=== PATIENT | male | born 1935 | race Caucasian/White ===

== ENCOUNTER → 2016-04-01 | Outpatient (CLI) | payer OTHER, BC ==
[2016-04-01 13:01] LABS: ESTIMATED AVERAGE GLUCOSE 137 mg/dl; HA1C FLAG Normal (Normal)
[2016-04-01 13:22] LABS: ALT/SGPT 16 U/L (12-78); BLOOD UREA NITROGEN 16 mg/dl (7-18); BUN/CREATININE RATIO 16.6 (10-20); CARBON DIOXIDE 29 mmol/L (21-32); CHLORIDE 105 mmol/L (98-107); CHOLESTEROL 129 mg/dl (0-200); CREATININE 0.97 mg/dl (0.60-1.40); GLUCOSE 139 mg/dl (70-99); POTASSIUM 4.2 mmol/L (3.5-5.1); SODIUM 140 mmol/L (136-145)
[2016-04-01 13:26] LABS: AST/SGOT 14 U/L (15-37); CHOLESTEROL/HDL RATIO 2.3; HDL CHOLESTEROL 56 mg/dl; LDL CHOLESTEROL CALCULATED 48 mg/dl; TRIGLYCERIDES 127 mg/dl (0-150); VERY LOW DENSITY LIPOPROT CALC 25 mg/dl
== END | disposition home or self-care (01) ==
LOC: C.LABMFLN 10:23
PROVIDERS: ATTEND Family Medicine
DX: I10 Essential (primary) hypertension (principal); E78.00 Pure hypercholesterolemia, unspecified; E11.9 Type 2 diabetes mellitus without complications

== ENCOUNTER → 2016-07-28 | Outpatient (CLI) | payer OTHER, BC ==
[2016-07-28 19:17] LABS: ALT/SGPT 20 U/L (12-78); AST/SGOT 17 U/L (15-37); BLOOD UREA NITROGEN 19 mg/dl (7-18); BUN/CREATININE RATIO 18.5 (10-20); CARBON DIOXIDE 28 mmol/L (21-32); CHLORIDE 104 mmol/L (98-107); CHOLESTEROL 123 mg/dl (0-200); GLUCOSE 106 mg/dl (70-99); POTASSIUM 3.9 mmol/L (3.5-5.1); SODIUM 140 mmol/L (136-145)
[2016-07-28 19:20] LABS: ALB/GLOB RATIO 1.2 (0.9-2); ALKALINE PHOSPHATASE 75 U/L (45-117); HDL CHOLESTEROL 63 mg/dl; LDL CHOLESTEROL CALCULATED 44 mg/dl; TRIGLYCERIDES 81 mg/dl (0-150); VERY LOW DENSITY LIPOPROT CALC 16 mg/dl
[2016-07-29 06:38] LABS: ESTIMATED AVERAGE GLUCOSE 137 mg/dl; HA1C FLAG Normal (Normal)
== END | disposition home or self-care (01) ==
LOC: C.LABMFLN 15:18
PROVIDERS: ATTEND Family Medicine
DX: I10 Essential (primary) hypertension (principal); E78.00 Pure hypercholesterolemia, unspecified; E11.9 Type 2 diabetes mellitus without complications

== ENCOUNTER → 2016-07-28 | Outpatient (CLI) | payer OTHER, BC | END | disposition home or self-care (01) | LOC: C.PATHSPEC 09:37 | PROVIDERS: ATTEND Family Medicine | DX: L98.9 Disorder of the skin and subcutaneous tissue, unspecified (principal) ==

== ENCOUNTER → 2016-12-02 | Outpatient (CLI) | payer OTHER, BC ==
[2016-12-02 13:54] LABS: CREATININE RANDOM URINE 59.6 mg/dl
[2016-12-02 13:58] LABS: URINE APPEARANCE CLEAR (CLEAR); URINE BILIRUBIN NEG (NEG); URINE COLOR YELLOW; URINE NITRITE NEG (NEG); UROBILINOGEN NEG (NEG)
[2016-12-02 14:00] LABS: MANUAL MICROSCOPIC REQUIRED? NO; REVIEW REQ? NO
[2016-12-02 14:03] LABS: ESTIMATED AVERAGE GLUCOSE 131 mg/dl; HA1C FLAG Normal (Normal)
[2016-12-02 14:05] LABS: RATIO 11.4 mcg/mg (0-30.0)
[2016-12-02 14:14] LABS: ALT/SGPT 16 U/L (12-78); BLOOD UREA NITROGEN 15 mg/dl (7-18); BUN/CREATININE RATIO 16.4 (10-20); CALCIUM 9.3 mg/dl (8.5-10.1); CARBON DIOXIDE 28 mmol/L (21-32); CHLORIDE 104 mmol/L (98-107); CHOLESTEROL 123 mg/dl (0-200); CREATININE 0.91 mg/dl (0.60-1.40); GLUCOSE 134 mg/dl (70-99); POTASSIUM 4.1 mmol/L (3.5-5.1); SODIUM 138 mmol/L (136-145)
[2016-12-02 14:17] LABS: ALB/GLOB RATIO 1.3 (0.9-2); ALKALINE PHOSPHATASE 77 U/L (45-117); AST/SGOT 19 U/L (15-37); HDL CHOLESTEROL 62 mg/dl; LDL CHOLESTEROL CALCULATED 41 mg/dl; TRIGLYCERIDES 99 mg/dl (0-150); VERY LOW DENSITY LIPOPROT CALC 20 mg/dl
== END | disposition home or self-care (01) ==
LOC: C.LABMFLN 07:32
PROVIDERS: ATTEND Family Medicine
DX: R35.0 Frequency of micturition (principal); R39.15 Urgency of urination; I10 Essential (primary) hypertension; E78.00 Pure hypercholesterolemia, unspecified; E11.40 Type 2 diabetes mellitus with diabetic neuropathy, unspecified

== ENCOUNTER → 2017-04-04 | Outpatient (CLI) | payer OTHER, BC ==
[2017-04-04 13:09] LABS: ALBUMIN 3.8 gm/dl (3.4-5.0); ALT/SGPT 15 U/L (12-78); BLOOD UREA NITROGEN 16 mg/dl (7-18); CALCIUM 9.5 mg/dl (8.5-10.1); CARBON DIOXIDE 28 mmol/L (21-32); CHOLESTEROL 120 mg/dl (0-200); CREATININE 0.96 mg/dl (0.60-1.40); GLUCOSE 134 mg/dl (70-99); POTASSIUM 3.8 mmol/L (3.5-5.1); SODIUM 137 mmol/L (136-145)
[2017-04-04 13:10] LABS: HEMOGLOBIN A1C 6.5 % (4.5-5.6)
[2017-04-04 13:12] LABS: ALKALINE PHOSPHATASE 73 U/L (45-117); AST/SGOT 15 U/L (15-37); LDL CHOLESTEROL CALCULATED 39 mg/dl; TOTAL PROTEIN 7.1 gm/dl (6.4-8.2)
== END | disposition home or self-care (01) ==
LOC: C.LABMFLN 08:33
PROVIDERS: ATTEND Family Medicine
DX: I10 Essential (primary) hypertension (principal); E78.00 Pure hypercholesterolemia, unspecified; E11.9 Type 2 diabetes mellitus without complications

== ENCOUNTER → 2017-09-28 | Outpatient (CLI) | payer OTHER, BC ==
[2017-09-28 18:04] LABS: ALBUMIN 3.8 gm/dl (3.4-5.0); ALKALINE PHOSPHATASE 78 U/L (45-117); ALT/SGPT 20 U/L (12-78); AST/SGOT 17 U/L (15-37); BLOOD UREA NITROGEN 9 mg/dl (7-18); CALCIUM 8.9 mg/dl (8.5-10.1); CARBON DIOXIDE 31 mmol/L (21-32); CHOLESTEROL 112 mg/dl (0-200); GLUCOSE 109 mg/dl (70-99); LDL CHOLESTEROL CALCULATED 40 mg/dl; POTASSIUM 3.9 mmol/L (3.5-5.1); SODIUM 140 mmol/L (136-145); TOTAL PROTEIN 7.1 gm/dl (6.4-8.2)
[2017-09-29 06:09] LABS: HEMOGLOBIN A1C 6.4 % (4.5-5.6)
== END | disposition home or self-care (01) ==
LOC: C.LABMFLN 14:45
PROVIDERS: ATTEND Family Medicine
DX: E78.00 Pure hypercholesterolemia, unspecified (principal); E11.9 Type 2 diabetes mellitus without complications; G25.0 Essential tremor

== ENCOUNTER 2020-05-11 10:50 | Inpatient (IN) ==
--- NOTE | 2020-05-11 11:10 | Emergency Department Note ---
Impression & Plan COVID-19, Weakness, Breathlessness ED Provider Note Provider: John Jones MD DATE OF SERVICE: 05/11/2020 CHIEF COMPLAINT: Shortness of breath, weakness HISTORY OF PRESENT ILLNESS: Patient is a 84-year-old gentleman with a past medical history of Parkinson's disease, hypertension, and diabetes presenting here via ambulance from home today reporting over the past 3 to 4 days he has began to feel unwell. He reports that he is been having a dry cough feeling somewhat short of breath and feels warm although he has had no measured elevated temperatures. Patient states he feels generally weak and has been having some more difficulty getting around. Denies falls. Denies chest pain or abdominal pain. Denies nausea or vomiting to me. Patient states his breathing moderately worse today and family noted a pulse ox in the 80s and thus he was brought here for further evaluation by ambulance. Ambulance reported a pulse ox of 90% initially on room air and was placed on some supplemental oxygen by EMS. Patient himself denies acute visual change or severe headache. Patient denies a history of lung issues in the past. There has been some exposures of folks with [place] who assist with his horses earlier this week. The patient has not been recently tested for Covid by his report. Discussed with his daughter Mariela via phone reports he has had some decreased intake recently but has been having his home medications. Recently they have assisted in a depends he said significant difficulty from weakness to walk and this is highly unusual. Reports at times has been a little bit confused. REVIEW OF SYSTEMS: A total of 10 review of systems was obtained and negative except as stated above in the HPI. PAST MEDICAL HISTORY: As noted above MEDICATIONS: Reviewed home medications SOCIAL HISTORY: Lives at home, very distant former smoker PHYSICAL EXAM: GENERAL: alert and oriented in no acute distress on stretcher, face mask in place Head: normocephalic and atraumatic EYES: No injection, discharge or icterus. NECK: Trachea midline. ENT: Mucous membranes pink and moist. LUNGS: Airway patent. No retractions. Breath sounds clear with good air entry bilaterally. HEART: Regular rate and rhythm. No chest wall tenderness ABDOMEN: Soft and non-tender, without guarding or rebound. No hepatosplenomegaly or masses BACK: No midline tenderness, no SI joint tenderness. No bilateral flank tenderness. SKIN: Acyanotic, warm, dry, without rashes EXTREMITIES: Without significant tenderness with 1+ bilateral pedal edema NEUROLOGICAL: No focal deficits. No aphasia. No facial droop or slurred speech. Normal strength and tone in the extremities. Sensation to gross touch normal. Ambulatory. EK bpm normal sinus rhythm. No PVC or PAC. No acute ST segment elevation or depression appreciated. QTc 437. CONTINUOUS CARDIAC MONITORING: was ordered and showed a heart rate of bpm in Patient's laboratory studies and imaging reviewed. Differential includes Infection, dehydration, metabolic abnormality, hypo/hyperglycemia, electrolyte disturbance, anemia, hypoxia, cardiac sources, intracerebral event, toxicologic, neurologic, as well as other pathologies. IMPRESSION/MEDICAL DECISION MAKING: Patient presents with generalized weakness and some shortness of breath. Initial room air sats here are okay but monitored closely. High concern for Covid given recent exposure. Covid test was sent as well as additional blood work, lactate, cultures, and EKG/chest x-ray. Patient maintained on isolation precautions here. Blood work without significant leukocytosis and borderline anemia. No severe electrolyte abnormality or signs of transaminitis. No evidence based on labs of pancreatitis. Troponin is not elevated and this coupled EKG of a lower suspicion for ACS or cardiac injury. Chest x-ray shows some chronic interstitial lung findings but question some new ED findings of atelectasis versus pneumonitis. CT the head without acute intracranial findings such as large mass or hemorrhage. D-dimer is negative and given this and history lower suspicion at this time for acute PE. Procalcitonin undetectably low will lower suspicion for bacterial component to this. Rapid Covid test returns positive which is consistent with his symptoms. Patient not significant toxic while here in the ER but borderline. This is occurred while at rest. Given his weakness and borderline oxygen levels at this time as well as age feel that further care here at the hospital is warranted and the patient was in agreement. Updated his daughters via phone. The hospitalist was contacted. DIAGNOSIS: Weakness, shortness of breath, COVID-19 pneumonia DISPOSITION: Hospitalist will evaluate Patient was agreeable with this plan. Past Med/Surg History Medical History Benign essential hypertension BPH (benign prostatic hyperplasia) Cognitive changes Controlled diabetes mellitus with diabetic neuropathy NIDDM Diabetes mellitus, type 2 Diabetic peripheral neuropathy Former smoker History of anesthesia reaction PT VERY CONFUSED FOR SEVERAL DAYS AFTER KNEE REPLACEMENT > DOES HAVE UNDERLYING MILD CONFUSION PER DAUGHTER Hypercholesterolemia Hypothyroidism Hypothyroidism Nasal airway abnormality Parkinson disease Primary osteoarthritis of knee Vitamin B 12 deficiency Surgical History History of cataract surgery BILAT History of cholecystectomy History of colonoscopy History of tooth extraction Status post right knee replacement Family History Brother Colon cancer Other No pertinent family history Social History Smoking Status: Former smoker Second Hand Exposure: No; Hx Alcohol Use: Yes Alcohol type: hard liquor Hx Substance Use: No Preferred Language: Georgian Communication Ability: Effective Visual Impairment: No Limitations Hearing Ability: Normal 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 Beliefs That Will Affect Care: None marital status: / Current Living Situation: Family Current Living Situation Comment: with daughter current occupational status: retired 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 [employer] Feels Safe at Home: Yes Safety Concerns: Feels Safe At This Time Dental Care, Regularly: Yes Seatbelt Use: sometimes Sunscreen Use: No Assistive Devices: Cane, Denture - Upper, Denture - Lower and Glasses Allergies Allergies Allergy/AdvReac Type Severity Reaction Status Date / Time No Known Drug Allergies Allergy Verified 05/11/20 13:40 Home Meds Home Medications Medication Instructions Recorded Confirmed cinnamon bark [Cinnamon] 500 mg PO QAM 06/07/19 05/11/20 cyanocobalamin (vitamin B-12) 0 mcg PO QAM 06/07/19 05/11/20 [Vitamin B-12] metformin 500 mg PO QAM 03/25/20 05/11/20 amlodipine 5 mg PO QAM 03/31/20 05/11/20 levothyroxine [Synthroid] 25 mcg PO QAM 03/31/20 05/11/20 lisinopril-hydrochlorothiazide 1 tab PO QAM 03/31/20 05/11/20 tamsulosin 0.4 mg PO PM 03/31/20 05/11/20 Previous Rx's Medication Instructions Recorded atorvastatin 40 mg tablet 40 mg PO QPM #90 tab 05/15/19 triamcinolone acetonide 0.1 % 1 appln TOP BID PRN #80 gm 08/02/19 topical cream carbidopa 25 mg-levodopa 100 mg 1 tab PO QID #120 tab 12/25/19 tablet cholecalciferol (vitamin D3) 25 1,000 unit PO DAILY #30 cap 04/27/20 mcg (1,000 unit) capsule Results & Data (ED) Vital Signs Vital Signs - 24 hr 05/11/20 10:55 05/11/20 10:56 05/11/20 10:59 Temperature 37.0 C Temperature Source Oral Pulse Rate 72 69 74 Pulse Rate from SpO2 Sensor 72 70 Respiratory Rate 20 13 18 Respiratory Effort / Characteristics Non-Labored Blood Pressure 123/70 123/70 Blood Pressure Mean 87 87 Pulse Oximetry 94 96 95 Oxygen Delivery Method Room Air Sepsis Recent Fever Within 48 Hours No Sepsis New/Unexplained Change in Mental Status No Sepsis Action Taken by Nursing No Action Required 05/11/20 11:00 05/11/20 11:15 05/11/20 11:30 Temperature Temperature Source Pulse Rate 72 70 70 Pulse Rate from SpO2 Sensor 72 69 70 Respiratory Rate 16 21 21 Respiratory Effort / Characteristics Blood Pressure Blood Pressure Mean Pulse Oximetry 94 93 91 Oxygen Delivery Method Sepsis Recent Fever Within 48 Hours Sepsis New/Unexplained Change in Mental Status Sepsis Action Taken by Nursing 05/11/20 11:50 05/11/20 12:00 05/11/20 12:15 Temperature Temperature Source Pulse Rate 70 65 67 Pulse Rate from SpO2 Sensor 70 65 67 Respiratory Rate 18 19 16 Respiratory Effort / Characteristics Blood Pressure Blood Pressure Mean Pulse Oximetry 94 92 92 Oxygen Delivery Method Sepsis Recent Fever Within 48 Hours Sepsis New/Unexplained Change in Mental Status Sepsis Action Taken by Nursing 05/11/20 12:16 05/11/20 12:30 05/11/20 12:31 Temperature Temperature Source Pulse Rate 66 64 63 Pulse Rate from SpO2 Sensor 65 64 63 Respiratory Rate 22 22 21 Respiratory Effort / Characteristics Blood Pressure 117/65 115/66 Blood Pressure Mean 82 82 Pulse Oximetry 92 91 92 Oxygen Delivery Method Sepsis Recent Fever Within 48 Hours Sepsis New/Unexplained Change in Mental Status Sepsis Action Taken by Nursing Laboratory Data Result diagrams: 05/11/20 11:10 05/11/20 11:10 Lab Results 05/11/20 05/11/20 05/11/20 Range/Units 11:10 11:10 11:10 WBC (4.8-10.8) K/uL RBC (4.7-6.1) M/uL Hgb (14.0-18.0) g/dL Hct (42-52) % MCV (80-100) fL MCH (25-34) pg MCHC (32-36) g/dL RDW Std Deviation (36.4-46.3) fL RDW Coeff of Nisha (11.5-14.5) % Plt Count (130-400) K/uL MPV (7.4-10.4) fL Immature Gran % (Auto) % Neut % (Auto) % Lymph % (Auto) % Travis % (Auto) % Eos % (Auto) % Baso % (Auto) % Neut # (Auto) (1.4-6.5) K/uL Lymph # (Auto) (1.2-3.4) K/uL Travis # (Auto) (0.11-0.59) K/uL Eos # (Auto) (0-0.5) K/uL Baso # (Auto) (0-0.2) K/uL Immature Gran # (Auto) (0.00-0.02) K/uL PT 10.3 (9.0-12.0) Seconds INR 1.0 (0.9-1.1) D-Dimer 340 (0-500) ug/L FEU Sodium 137 (136-145) mmol/L Potassium 3.9 (3.5-5.1) mmol/L Chloride 106 (98-107) mmol/L Carbon Dioxide 28 (21-32) mmol/L Anion Gap 3.0 (3-11) BUN 24 H (7-18) mg/dl Creatinine 1.01 (0.6-1.4) mg/dl Est Cr Clr Drug Dosing 65.0 ml/min Est GFR ( Amer) 78.2 Est GFR (Non-Af Amer) 67.5 BUN/Creatinine Ratio 23.5 H (10-20) Glucose 99 (70-99) mg/dl Lactate (0.4-2.0) mmol/L Calcium 8.8 (8.5-10.1) mg/dl Total Bilirubin 0.6 (0.2-1) mg/dl AST 12 L (15-37) U/L ALT 8 L (12-78) U/L Alkaline Phosphatase 89 (45-117) U/L Troponin I < 0.015 (0-0.045) ng/ml C-Reactive Protein 1.53 H (0-0.29) mg/dl Total Protein 6.7 (6.4-8.2) gm/dl Albumin 3.6 (3.4-5.0) gm/dl Globulin 3.1 (2.5-4.0) gm/dl Albumin/Globulin Ratio 1.2 (0.9-2) Lipase 112 (73-393) U/L Procalcitonin < 0.05 (0-0.5) ng/ml COVID-19 Eval Order SARS-CoV-2 (PCR) (Negative) Influenza Type A (PCR) (Neg) Influenza Type B (PCR) (Neg) RSV (RT-PCR) (Neg) 05/11/20 05/11/20 05/11/20 Range/Units 11:10 11:10 11:15 WBC 5.04 (4.8-10.8) K/uL RBC 4.51 L (4.7-6.1) M/uL Hgb 13.6 L (14.0-18.0) g/dL Hct 41.4 L (42-52) % MCV 91.8 (80-100) fL MCH 30.2 (25-34) pg MCHC 32.9 (32-36) g/dL RDW Std Deviation 45.7 (36.4-46.3) fL RDW Coeff of Nisha 13.6 (11.5-14.5) % Plt Count 132 (130-400) K/uL MPV 9.6 (7.4-10.4) fL Immature Gran % (Auto) 0.2 % Neut % (Auto) 49.9 % Lymph % (Auto) 16.7 % Travis % (Auto) 27.8 % Eos % (Auto) 4.8 % Baso % (Auto) 0.6 % Neut # (Auto) 2.52 (1.4-6.5) K/uL Lymph # (Auto) 0.84 L (1.2-3.4) K/uL Travis # (Auto) 1.40 H (0.11-0.59) K/uL Eos # (Auto) 0.24 (0-0.5) K/uL Baso # (Auto) 0.03 (0-0.2) K/uL Immature Gran # (Auto) 0.01 (0.00-0.02) K/uL PT (9.0-12.0) Seconds INR (0.9-1.1) D-Dimer (0-500) ug/L FEU Sodium (136-145) mmol/L Potassium (3.5-5.1) mmol/L Chloride (98-107) mmol/L Carbon Dioxide (21-32) mmol/L Anion Gap (3-11) BUN (7-18) mg/dl Creatinine (0.6-1.4) mg/dl Est Cr Clr Drug Dosing ml/min Est GFR ( Amer) Est GFR (Non-Af Amer) BUN/Creatinine Ratio (10-20) Glucose (70-99) mg/dl Lactate 1.1 (0.4-2.0) mmol/L Calcium (8.5-10.1) mg/dl Total Bilirubin (0.2-1) mg/dl AST (15-37) U/L ALT (12-78) U/L Alkaline Phosphatase (45-117) U/L Troponin I (0-0.045) ng/ml C-Reactive Protein (0-0.29) mg/dl Total Protein (6.4-8.2) gm/dl Albumin (3.4-5.0) gm/dl Globulin (2.5-4.0) gm/dl Albumin/Globulin Ratio (0.9-2) Lipase (73-393) U/L Procalcitonin (0-0.5) ng/ml COVID-19 Eval Order [facility] at [facility] SARS-CoV-2 (PCR) (Negative) Influenza Type A (PCR) (Neg) Influenza Type B (PCR) (Neg) RSV (RT-PCR) (Neg) 05/11/20 Range/Units 11:15 WBC (4.8-10.8) K/uL RBC (4.7-6.1) M/uL Hgb (14.0-18.0) g/dL Hct (42-52) % MCV (80-100) fL MCH (25-34) pg MCHC (32-36) g/dL RDW Std Deviation (36.4-46.3) fL RDW Coeff of Nisha (11.5-14.5) % Plt Count (130-400) K/uL MPV (7.4-10.4) fL Immature Gran % (Auto) % Neut % (Auto) % Lymph % (Auto) % Travis % (Auto) % Eos % (Auto) % Baso % (Auto) % Neut # (Auto) (1.4-6.5) K/uL Lymph # (Auto) (1.2-3.4) K/uL Travis # (Auto) (0.11-0.59) K/uL Eos # (Auto) (0-0.5) K/uL Baso # (Auto) (0-0.2) K/uL Immature Gran # (Auto) (0.00-0.02) K/uL PT (9.0-12.0) Seconds INR (0.9-1.1) D-Dimer (0-500) ug/L FEU Sodium (136-145) mmol/L Potassium (3.5-5.1) mmol/L Chloride (98-107) mmol/L Carbon Dioxide (21-32) mmol/L Anion Gap (3-11) BUN (7-18) mg/dl Creatinine (0.6-1.4) mg/dl Est Cr Clr Drug Dosing ml/min Est GFR ( Amer) Est GFR (Non-Af Amer) BUN/Creatinine Ratio (10-20) Glucose (70-99) mg/dl Lactate (0.4-2.0) mmol/L Calcium (8.5-10.1) mg/dl Total Bilirubin (0.2-1) mg/dl AST (15-37) U/L ALT (12-78) U/L Alkaline Phosphatase (45-117) U/L Troponin I (0-0.045) ng/ml C-Reactive Protein (0-0.29) mg/dl Total Protein (6.4-8.2) gm/dl Albumin (3.4-5.0) gm/dl Globulin (2.5-4.0) gm/dl Albumin/Globulin Ratio (0.9-2) Lipase (73-393) U/L Procalcitonin (0-0.5) ng/ml COVID-19 Eval Order SARS-CoV-2 (PCR) POSITIVE A* (Negative) Influenza Type A (PCR) Negative (Neg) Influenza Type B (PCR) Negative (Neg) RSV (RT-PCR) Negative (Neg) Administered Medications Carbidopa/Levodopa (Carbidopa/Levodopa 25/100mg Tab) 1 tab PO QID MARIUSZ Stop: 06/10/20 16:59 Last Admin: 05/11/20 16:50 Dose: 1 tab Documented by: [id number] Enoxaparin Sodium (Enoxaparin Inj 60 Mg/0.6 Ml Syr) 50 mg SQ Q12H MARIUSZ Stop: 06/10/20 15:19 Last Admin: 05/11/20 16:48 Dose: 50 mg Documented by: [id number] Discontinued Medications Furosemide (Furosemide 40 Mg/4 Ml Vial) 10 mg IV NOW STA Stop: 05/11/20 12:57 Last Admin: 05/11/20 13:03 Dose: 10 mg Documented by: [id number] Remdesivir 200 mg/ Sodium (Chloride) 250 mls @ 125 mls/hr IV ONE STA; Protocol Stop: 05/11/20 17:25 Last Admin: 05/11/20 15:48 Dose: 125 mls/hr Documented by: [id number] Discharge Plan Visit Data Chief Complaint: Shortness of Breath/Dyspnea ED Provider: John Jones Discharge Problem: COVID-19, Weakness, Breathlessness Patient Disposition: Admitted As Inpatient Discharge Instructions Interventions: ED Discharge Assessment Last Done: 05/11/20 14:00
[2020-05-11 11:24] LABS: Basophils # (auto) 0.03 K/uL (0-0.2); Basophils % (auto) 0.6 %; Eosinophils # (auto) 0.24 K/uL (0-0.5); Eosinophils % (auto) 4.8 %; Hematocrit (blood only) 41.4 % (42-52); Hemoglobin 13.6 g/dL (14.0-18.0); Immature Granulocytes # (auto) 0.01 K/uL (0.00-0.02); Immature Granulocytes % (auto) 0.2 %; Lymphocytes # (auto) 0.84 K/uL (1.2-3.4); Lymphocytes % (auto) 16.7 %; Mean Corpuscular Hemoglobin 30.2 pg (25-34); Mean Corpuscular Hgb Conc 32.9 g/dL (32-36); Mean Corpuscular Volume 91.8 fL (80-100); Mean Platelet Volume 9.6 fL (7.4-10.4); Monocytes % (auto) 27.8 %; Neutrophils # (auto) 2.52 K/uL (1.4-6.5); Neutrophils % (auto) 49.9 %; Platelet Count 132 K/uL (130-400); RDW Coefficient of Variation 13.6 % (11.5-14.5); RDW Standard Deviation 45.7 fL (36.4-46.3); Red Blood Count 4.51 M/uL (4.7-6.1); White Blood Count 5.04 K/uL (4.8-10.8)
[2020-05-11 11:37] LABS: D Dimer 340 ug/L FEU (0-500); Prothrombin Time 10.3 Seconds (9.0-12.0)
[2020-05-11 11:40] LABS: Alanine Aminotransferase 8 U/L (12-78); Albumin Level 3.6 gm/dl (3.4-5.0); Aspartate Aminotransferase 12 U/L (15-37); BUN Creatinine Ratio 23.5 (10-20); Blood Urea Nitrogen 24 mg/dl (7-18); C Reactive Protein 1.53 mg/dl (0-0.29); Calcium 8.8 mg/dl (8.5-10.1); Carbon Dioxide 28 mmol/L (21-32); Chloride 106 mmol/L (98-107); Est GFR (African American) 78.2; Est GFR (Non-African American) 67.5; Glucose 99 mg/dl (70-99); Lipase 112 U/L (73-393); Potassium 3.9 mmol/L (3.5-5.1); Sodium 137 mmol/L (136-145)
--- NOTE | 2020-05-11 11:40 | XRay Report ---
XR chest 1V portable HISTORY: 84 years-old Male hypoxia acute hypoxia COMPARISON: CTA chest 06/07/2019 TECHNIQUE: Portable AP view of the chest FINDINGS: Cardiomediastinal and hilar silhouettes are unchanged. Chronic reticular opacities with new ill-defin ed bibasilar opacities. No pneumothorax, large pleural effusion or overt pulmonary edema. Degenerativ e changes of the shoulders and spine. IMPRESSION: Chronic interstitial lung disease with new ill-defined bibasilar opacities suggestive of progressive fibrosis, atelectasis or pneumonitis. ACT 112: Negative or not required by law. The above report was generated using voice recognition software. It may contain grammatical, syntax o r spelling errors. Electronically signed by: Camron Mix M.D. 05/11/2020 11:39 AM
[2020-05-11 11:45] LABS: Albumin Globulin Ratio 1.2 (0.9-2); Alkaline Phosphatase 89 U/L (45-117); Bilirubin,Total 0.6 mg/dl (0.2-1); Globulin 3.1 gm/dl (2.5-4.0); Total Protein 6.7 gm/dl (6.4-8.2); Troponin I < 0.015 ng/ml (0-0.045)
--- NOTE | 2020-05-11 11:52 | CT Scan Report ---
CT head/brain wo con CLINICAL HISTORY: 84 years-old Male with confusion. Acutely altered mental status with confusion TECHNIQUE: Multiple axial CT images of the head were obtained without contrast. A dose lowering tech nique was utilized adhering to the principles of ALARA. CT DOSE: 614.27 mGy.cm COMPARISON: Head CT 03/25/2020 FINDINGS: No acute intracranial hemorrhage, midline shift, intracranial mass, hydrocephalus, territorial ischem ia or abnormal extra-axial collection. Age-related involutional changes with ex vacuo ventriculomegal y. Patchy white matter hypodensities suggest chronic microvascular ischemic disease. Cerebral vascula r calcifications. The calvarium is intact. Prior bilateral lens replacement. The paranasal sinuses, mastoid air cells, and middle ear cavities are clear. IMPRESSION: No acute intracranial abnormality. ACT 112: Negative or not required by law. The above report was generated using voice recognition software. It may contain grammatical, syntax o r spelling errors. Electronically signed by: Camron Mix M.D. 05/11/2020 11:51 AM
--- NOTE | 2020-05-11 11:53 | History & Physical Report ---
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 - Dexamethasone 6mg PO - Follow biomarkers and response - PCT negative - Lasix 10mg IV x1 for bilateral fluffy hilar infiltrate - Lovenox 0.5mg/kg BID for VTE prophylaxis (2) Parkinson disease: Parkinson's disease with that appears to be worsening and not fully controlled symptoms - Patient has declined neurology follow up as an outpatient - Scored low on his last cognitive exam - Continue Carbidopa 25/Levadopa 100 PO QID (3) Cognitive changes: As above - PT/OT consult assist with ambulatory aids if needed and safety (4) Controlled diabetes mellitus with diabetic neuropathy: Continue metformin - HGB A1C in morning (5) Vitamin B 12 deficiency: No acute needs - Continue B12 supplementation 454 last year - will recheck in morning (6) Hypothyroidism: No acute needs, continue Levothyoxine 25mcg - TSH pending in morning (7) Hyperlipidemia: Good control noted in 2019 - Continue statin, lipids in the morning History of Present Illness Chief Complaint: Weakness Primary Care Provider: Sharath Wang MD 84 YOM with past medical history of HTN, hypothyroidism, B12 deficiency, Parkinson's disease, BPH, arthritis, and recent septoplasty repair following a fall. For the past 3-4 days he began feeling unwell with fevers, cough and weakness to the point he has needed his cane to regularly get around. He reportedly is normally able to get around very independently, but is also having difficulty maintaining his self care since earlier this week. 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 Patient came to the ER via EMS and room air SPO2 was 91%, had a CXR done and head CT performed. His organ indices and biomarkers are not elevated at this time. Patient will be admitted for monitoring of his response early in his COVID infection and assist with his care and weakness. Allergies Allergy/AdvReac Type Severity Reaction Status Date / Time No Known Drug Allergies Allergy Verified 05/11/20 13:40 Home Medications Medication Instructions Recorded Confirmed Type atorvastatin 40 mg tablet 40 mg PO QPM #90 tab 05/15/19 05/11/20 Rx cinnamon bark [Cinnamon] 500 mg PO QAM 06/07/19 05/11/20 History cyanocobalamin (vitamin B-12) 0 mcg PO QAM 06/07/19 05/11/20 History [Vitamin B-12] triamcinolone acetonide 0.1 % 1 appln TOP BID PRN #80 gm 08/02/19 05/11/20 Rx topical cream carbidopa 25 mg-levodopa 100 mg 1 tab PO QID #120 tab 12/25/19 05/11/20 Rx tablet metformin 500 mg PO QAM 03/25/20 05/11/20 History amlodipine 5 mg PO QAM 03/31/20 05/11/20 History levothyroxine [Synthroid] 25 mcg PO QAM 03/31/20 05/11/20 History lisinopril-hydrochlorothiazide 1 tab PO QAM 03/31/20 05/11/20 History tamsulosin 0.4 mg PO PM 03/31/20 05/11/20 History cholecalciferol (vitamin D3) 25 1,000 unit PO DAILY #30 cap 04/27/20 05/11/20 Rx mcg (1,000 unit) capsule Past Med/Surg History Medical History Benign essential hypertension BPH (benign prostatic hyperplasia) Cognitive changes Controlled diabetes mellitus with diabetic neuropathy NIDDM Diabetes mellitus, type 2 Diabetic peripheral neuropathy Former smoker History of anesthesia reaction PT VERY CONFUSED FOR SEVERAL DAYS AFTER KNEE REPLACEMENT > DOES HAVE UNDERLYING MILD CONFUSION PER DAUGHTER Hypercholesterolemia Hypothyroidism Hypothyroidism Nasal airway abnormality Parkinson disease Primary osteoarthritis of knee Vitamin B 12 deficiency Surgical History History of cataract surgery BILAT History of cholecystectomy History of colonoscopy History of tooth extraction Status post right knee replacement Family History Brother Colon cancer Other No pertinent family history Social History Smoking Status: Former smoker Second Hand Exposure: No; Hx Alcohol Use: Yes Alcohol type: hard liquor Hx Substance Use: No Preferred Language: Somali Communication Ability: Effective Visual Impairment: No Limitations Hearing Ability: Normal 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 Beliefs That Will Affect Care: None marital status: / Current Living Situation: Family Current Living Situation Comment: daughter current occupational status: retired 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 [employer] Feels Safe at Home: Yes Dental Care, Regularly: Yes Seatbelt Use: sometimes Sunscreen Use: No Assistive Devices: Cane, Denture - Upper, Denture - Lower and Glasses Review of Systems Review of Systems: REVIEW OF SYSTEMS: Constitutional: (+) fever, sweats or chills Eyes: No diplopia, no worsening or blurred vision ENT: normal hearing, no trouble swallowing Respiratory: (+) cough, dyspnea at rest or on exertion (-) sputum, Cardiovascular: No chest pain, tightness or palpitations Abdomen: No pain, nausea, vomiting, diarrhea or constipation Musculoskeletal: No joint pain, calf pain, swelling Neurologic: (+) weakness, balance (-) numbness/tingling, Psychiatric: No anxiety or depression Skin: No rash or itch Physical Exam Physical Exam: PHYSICAL EXAM: General: awake, alert, no apparent distress Head: Normocephalic, atraumatic ENT: PERRL, EOMI, no pharyngeal exudate, mucous membranes moist Neuro: AAO x 3, speech clear and appropriate, strength intact bilaterally 5/5, sensation intact and equal all extremities and dermatomes, no pronator drift Chest: equal rise and fall of the chest, no accessory muscle use, no heaves or thirlls, inspiratory wheeze with fine crackles bilaterally on auscultation, on room air, Cardiac: Regular rate and rhythm, telemetry reviewed, skin warm dry, cap refill <3 seconds, peripheral pulses +2 no JVD, no murmur, no edema GI: NABS x 4 quadrants, soft, nontender to palpation, no rebound, guarding or tenderness : Spontaneously voiding, no pain, no CVA tenderness, Extremities: Normal inspection, no peripheral edema or erythema, calfs nontender to palpation Psych: Normal mood and affect Skin: no rash or erythema Results & Data Results & Data ([facility]) Vital Signs (Past 12 Hours) Vital Signs Temp Pulse Resp BP Pulse Ox 05/11/20 11:30 70 21 91 05/11/20 11:15 70 21 93 05/11/20 11:00 72 16 94 05/11/20 10:59 37.0 C 74 18 123/70 95 05/11/20 10:56 69 13 96 05/11/20 10:55 72 20 123/[address] head/brain wo con CLINICAL HISTORY: 84 years-old Male with confusion. Acutely altered mental status with confusion TECHNIQUE: Multiple axial CT images of the head were obtained without contrast. A dose lowering technique was utilized adhering to the principles of ALARA. CT DOSE: 614.27 mGy.cm COMPARISON: Head CT 03/25/2020 FINDINGS: No acute intracranial hemorrhage, midline shift, intracranial mass, hydrocephalus, territorial ischemia or abnormal extra-axial collection. Age- related involutional changes with ex vacuo ventriculomegaly. Patchy white matter hypodensities suggest chronic microvascular ischemic disease. Cerebral vascular calcifications. The calvarium is intact. Prior bilateral lens replacement. The paranasal sinuses, mastoid air cells, and middle ear cavities are clear. IMPRESSION: No acute intracranial abnormality. XR chest 1V portable HISTORY: 84 years-old Male hypoxia acute hypoxia COMPARISON: CTA chest 06/07/2019 TECHNIQUE: Portable AP view of the chest FINDINGS: Cardiomediastinal and hilar silhouettes are unchanged. Chronic reticular opa cities with new ill-defined bibasilar opacities. No pneumothorax, large pleural effusion or overt pulmonary edema. Degenerative changes of the shoulders and spine. IMPRESSION: Chronic interstitial lung disease with new ill-defined bibasilar opacities suggestive of progressive fibrosis, atelectasis or pneumonitis. ECG Additional Comments: Normal sinus rhythm Normal ECG When compared with ECG of 07-JUN-2019 10:01, No significant change was found Supervising Physician Co-Signing Physician Notes Patient was seen and examined independently I discussed the case with Rizwan HUGHES I reviewed pertinent past medical social family history and also the plan of care and agree with the plan of care. 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 He is weak and has shortness of breath. He is a nonproductive cough. He is Covid test positive in the ER. Oxygen saturations were 91% on room air Chest x-ray shows changes of Covid examination shows rales bibasilarly We will admit to medical floor does not need telemetry supplemental oxygen dexamethasone remdesivir Any exceptions will be noted below PG Care Time/CCT Total # of Minutes Spent Total Time Spent with Patient: Total time spent is greater than 50% in coordination of care (as documented) at patient's floor/unit and/or counseling patient: Coding Level of Care Code 50580 Initial Inpt Care Lvl 3 Diagnoses COVID-19 U07.1 Parkinson disease G20 Cognitive changes R41.89 Controlled diabetes mellitus with diabetic neuropathy E11.40 Diabetes mellitus residential insulin use: without residential use Diabetes mellitus type: type 2 Vitamin B 12 deficiency E53.8 Hypothyroidism E03.9 Hypothyroidism type: unspecified Hyperlipidemia E78.5 Hyperlipidemia type: unspecified (1) Hyperlipidemia Hyperlipidemia type: unspecified Qualified Code(s): E78.5 - Hyperlipidemia, unspecified (2) Hypothyroidism Hypothyroidism type: unspecified Qualified Code(s): E03.9 - Hypothyroidism, unspecified (3) Controlled diabetes mellitus with diabetic neuropathy Diabetes mellitus residential insulin use: without oil heaterman use Diabetes mellitus type: type 2 Qualified Code(s): E11.40 - Type 2 diabetes mellitus with diabetic neuropathy, unspecified
[2020-05-11 12:23] LABS: Influenza A virus by PCR Negative (Neg); Influenza B virus by PCR Negative (Neg); RSV by PCR Negative (Neg)
[2020-05-11 12:29] LABS: SARS CoV2 RNA(COVID-19) InHosp POSITIVE (Negative)
[2020-05-11] MEDS ORDERED: FUROSEMIDE 40 MG/4 ML VIAL IV STA (12:56)
[2020-05-11 13:50] LABS: Appearance Urine Clear (Clear); Bilirubin Urine Negative (Negative); Blood Urine Negative (Negative); Color Urine Yellow; Glucose Urine UA Negative (Negative); Ketones Urine Trace (Negative); Leukocyte Esterase Urine Negative (Negative); Nitrite Urine Negative (Negative); Protein Urine Negative (Negative); Specific Gravity Urine 1.022 (1.000-1.030); Urobilinogen Urine Negative (Negative)
--- NOTE | 2020-05-11 15:17 | Electrocardiogram Report ---
Test Reason : Blood Pressure : / mmHG Vent. Rate : 069 BPM Atrial Rate : 069 BPM P-R Int : 168 ms QRS Dur : 094 ms QT Int : 408 ms P-R-T Axes : 029 023 027 degrees QTc Int : 437 ms Normal sinus rhythm Normal ECG When compared with ECG of 07-JUN-2019 10:01, No significant change was found Confirmed by Fercho Webber ([id number]) on 05/11/2020 3:16:52 PM Referred By: Confirmed By:Fercho Webber
[2020-05-11] MEDS ORDERED: POLYETHYLENE (MIRALAX) 17 GM PACK PO PRN (15:20)
[2020-05-11] MEDS ORDERED: ACETAMINOPHEN 325 MG TAB PO PRN (15:20)
[2020-05-11] MEDS ORDERED: ONDANSETRON INJ 2 MG/ML 2 ML VIAL IV PRN (15:20)
[2020-05-11] MEDS ORDERED: REMDESIVIR 200 MG in SODIUM CHLORIDE 0.9% 210 ML IV STA (15:26)
[2020-05-11] MEDS: ENOXAPARIN INJ 60 MG/0.6 ML SYR SQ SCH (16:48)
[2020-05-11] MEDS: CARBIDOPA/LEVODOPA 25/100MG TAB PO SCH ×2 (16:50→20:32)
[2020-05-11] MEDS ORDERED: SODIUM CHLORIDE 0.9% 10ML FLUSH IV ONE (17:30)
[2020-05-11] MEDS: ATORVASTATIN 40 MG TAB PO SCH (20:32)
[2020-05-11] MEDS: TAMSULOSIN HCL 0.4 MG CAP PO SCH (20:33)
[2020-05-12] MEDS: ENOXAPARIN INJ 60 MG/0.6 ML SYR SQ SCH ×2 (04:13→16:28)
[2020-05-12] MEDS: LEVOTHYROXINE SODIUM 25 MCG TABLET PO SCH (06:20)
[2020-05-12 07:38] LABS: Basophils # (auto) 0.03 K/uL (0-0.2); Basophils % (auto) 0.7 %; Eosinophils # (auto) 0.31 K/uL (0-0.5); Eosinophils % (auto) 6.8 %; Hematocrit (blood only) 39.6 % (42-52); Hemoglobin 12.8 g/dL (14.0-18.0); Immature Granulocytes # (auto) 0.01 K/uL (0.00-0.02); Immature Granulocytes % (auto) 0.2 %; Lymphocytes # (auto) 0.99 K/uL (1.2-3.4); Lymphocytes % (auto) 21.8 %; Mean Corpuscular Hgb Conc 32.3 g/dL (32-36); Mean Platelet Volume 9.6 fL (7.4-10.4); Monocytes # (auto) 0.65 K/uL (0.11-0.59); Monocytes % (auto) 14.3 %; Neutrophils # (auto) 2.55 K/uL (1.4-6.5); Neutrophils % (auto) 56.2 %; Platelet Count 119 K/uL (130-400); RDW Coefficient of Variation 13.6 % (11.5-14.5); RDW Standard Deviation 46.6 fL (36.4-46.3); Red Blood Count 4.26 M/uL (4.7-6.1); White Blood Count 4.54 K/uL (4.8-10.8)
[2020-05-12 07:39] LABS: Estimated Average Glucose 134 mg/dl; Hemoglobin A1C 6.3 % (4.5-5.6)
[2020-05-12 08:08] LABS: Albumin Level 3.1 gm/dl (3.4-5.0); BUN Creatinine Ratio 25.6 (10-20); Calcium 8.6 mg/dl (8.5-10.1); Creatinine Clr Calc Pharmacy 82.6 ml/min; Est GFR (African American) 94.4; Est GFR (Non-African American) 81.5; Potassium 3.7 mmol/L (3.5-5.1)
[2020-05-12 08:12] LABS: Platelet Estimate Normal (Normal)
[2020-05-12 08:17] LABS: Albumin Globulin Ratio 1.1 (0.9-2); Bilirubin,Total 0.7 mg/dl (0.2-1); Globulin 2.9 gm/dl (2.5-4.0); Thyroid Stimulating Hormone 2.42 uIu/ml (0.300-4.500)
[2020-05-12] MEDS: CYANOCOBALAMIN 500 MCG TABLET (VITAMIN B-12) PO SCH (09:10)
[2020-05-12] MEDS: metFORMIN HCL 500 MG TAB PO SCH (09:10)
[2020-05-12] MEDS: CHOLECALCIFEROL 1,000 UNITS 25 MCG TAB PO SCH (09:11)
[2020-05-12] MEDS: LISINOPRIL/HCTZ 10/12.5MG TAB PO SCH (09:11)
[2020-05-12] MEDS: amLODIPine BESYLATE 5 MG TAB PO SCH (09:11)
[2020-05-12] MEDS: CARBIDOPA/LEVODOPA 25/100MG TAB PO SCH ×4 (09:11→21:10)
[2020-05-12] MEDS: dexAMETHasone 6 MG in SYRINGE 0 ML PO SCH (09:14)
[2020-05-12] MEDS: REMDESIVIR 100 MG in SODIUM CHLORIDE 0.9% 230 ML IV SCH (12:36)
[2020-05-12] MEDS: SODIUM CHLORIDE 0.9% 10ML FLUSH IV SCH (14:03)
[2020-05-12] MEDS ORDERED: ACETAMINOPHEN 325 MG TAB PO ONE (17:00)
[2020-05-12] MEDS: guaiFENesin 600 MG TABCR PO SCH (20:27)
[2020-05-12] MEDS: ATORVASTATIN 40 MG TAB PO SCH (21:10)
[2020-05-12] MEDS: TAMSULOSIN HCL 0.4 MG CAP PO SCH (21:10)
--- NOTE | 2020-05-12 21:39 | Hospitalist Progress Note ---
Date of Service May 12, 2020 Assessment & Plan (1) Pneumonia due to COVID-19 virus: With mild hypoxia. Day #2 remdesivir. Plan 5 days. Day #1 dexamethasone. Plan 10 days. Consented his daughter, by phone, for convalescent plasma. Risks and benefits discussed. He is <5 days into the illness thus good candidate for plasma. Pulmonary toilet. Incentive johnna. DVT proph - lovenox 50mg BID. add low-dose asa 81mg daily (2) Acute respiratory failure with hypoxia: 2nd COVID pneumonia. No evidence of complicating acute CHF. Low suspicion for PE. Does have baseline UIP per CT chest in 2019. (3) Parkinson disease: Continue Carbidopa 25/Levadopa 100 PO QID PT, OT while here (4) Cognitive changes: uncertain if met encephalopathy from COVID or baseline dementia from parkinson's follow (5) Controlled diabetes mellitus with diabetic neuropathy: a1c 6.3% hold metformin novolog sliding and correction/carb ratio (6) Vitamin B 12 deficiency: b12 level wnl cont b12 supplement (7) Hypothyroidism: continue Levothyroxine 25mcg TSH 2.4 this admission (8) Hyperlipidemia: cont statin (9) Pancytopenia: 2nd to COVID?? trend cbc (10) UIP (usual interstitial pneumonitis): CT chest 2019 crackles on exam -- could be COVID and/or UIP (11) DVT prophylaxis: lovenox 50mg BID daughter extensively updated by phone Admission and Anticipated Discharge Date Admission Date: May 11, 2020 Subjective patient c/o fatigue, cough no dyspnea appetite fair - ate breakfast, did not eat lunch very confused -- when I tried to speak with him about plasma consent he said "just talk with my daughter" he could not tell me the month or year thinks he has been sick "since the weekend" Review of Systems Constitutional: + fatigue, + weakness and + anorexia; no fever and no chills Ear, Nose, Mouth, Throat: denies loss of taste/smell Respiratory: + cough and + dyspnea Cardiovascular: no chest pain Gastrointestinal: no abdominal pain, no vomiting and no diarrhea/loose stools Physical Exam Constitutional: + ill appearing and + altered mental status; no acute distress ENMT: external ear and nose normal, oropharynx normal Respiratory: no respiratory distress Auscultation: + rales (soft, b/l, fine (bases)); no wheezes Cardiovascular: Rate/Rhythm: regular rate and regular rhythm Heart Sounds: normal S1 and normal S2 Vessels: posterior tibial pulses present and dorsalis pedis pulses present; no JVD Extremities: no edema Gastrointestinal (Abdomen): normal bowel sounds, soft, nontender, no hepatosplenomegaly Psychiatric: Orientation: alert and oriented to person; + not oriented to place and + not oriented to time Results & Data Results & Data ([facility]) Vital Signs (Past 12 Hours) Vital Signs Temp Pulse Pulse Resp BP BP Pulse Ox 05/12/20 21:10 36.6 C 77 16 127/69 95 05/12/20 20:51 36.5 C 79 16 117/68 95 05/12/20 20:36 36.3 C L 82 16 132/70 93 05/12/20 15:45 36.8 C 80 18 146/68 H 95 05/12/20 14:53 36.4 C L 78 22 125/79 92 Laboratory Results Laboratory Results - last 24 hr 05/12/20 05/12/20 05/12/20 07:01 07:01 07:01 WBC 4.54 L RBC 4.26 L Hgb 12.8 L Hct 39.6 L MCV 93.0 MCH 30.0 MCHC 32.3 RDW Std Deviation 46.6 H RDW Coeff of Nisha 13.6 Plt Count 119 L MPV 9.6 Immature Gran % (Auto) 0.2 Neut % (Auto) 56.2 Lymph % (Auto) 21.8 [place] % (Auto) 14.3 Eos % (Auto) 6.8 Baso % (Auto) 0.7 Neut # (Auto) 2.55 Lymph # (Auto) 0.99 L [place] # (Auto) 0.65 H Eos # (Auto) 0.31 Baso # (Auto) 0.03 Immature Gran # (Auto) 0.01 Platelet Estimate Normal Sodium 137 Potassium 3.7 Chloride 105 Carbon Dioxide 25 Anion Gap 7.0 BUN 20 H Creatinine 0.80 Est Cr Clr Drug Dosing 82.6 Est GFR ( Amer) 94.4 Est GFR (Non-Af Amer) 81.5 BUN/Creatinine Ratio 25.6 H Glucose 106 H POC Glucose Estimat Average Glucose 134 Hemoglobin A1c 6.3 H Calcium 8.6 Magnesium 2.0 Total Bilirubin 0.7 AST 13 L ALT 9 L Alkaline Phosphatase 81 Total Protein 6.0 L Albumin 3.1 L Globulin 2.9 Albumin/Globulin Ratio 1.1 Triglycerides 70 Cholesterol 118 LDL Cholesterol, Calc 44 VLDL Cholesterol, Calc 14 HDL Cholesterol 60 Cholesterol/HDL Ratio 2 Vitamin B12 TSH 2.420 Blood Type Antibody Screen 05/12/20 05/12/20 05/12/20 07:01 08:35 18:02 WBC RBC Hgb Hct MCV MCH MCHC RDW Std Deviation RDW Coeff of Nisha Plt Count MPV Immature Gran % (Auto) Neut % (Auto) Lymph % (Auto) [place] % (Auto) Eos % (Auto) Baso % (Auto) Neut # (Auto) Lymph # (Auto) [place] # (Auto) Eos # (Auto) Baso # (Auto) Immature Gran # (Auto) Platelet Estimate Sodium Potassium Chloride Carbon Dioxide Anion Gap BUN Creatinine Est Cr Clr Drug Dosing Est GFR ( Amer) Est GFR (Non-Af Amer) BUN/Creatinine Ratio Glucose POC Glucose 116 H Estimat Average Glucose Hemoglobin A1c Calcium Magnesium Total Bilirubin AST ALT Alkaline Phosphatase Total Protein Albumin Globulin Albumin/Globulin Ratio Triglycerides Cholesterol LDL Cholesterol, Calc VLDL Cholesterol, Calc HDL Cholesterol Cholesterol/HDL Ratio Vitamin B12 863 TSH Blood Type O Positive Antibody Screen NEGATIVE PG Care Time/CCT Total # of Minutes Spent Total Time Spent with Patient: Total time spent is greater than 50% in coordination of care (as documented) at patient's floor/unit and/or counseling patient: Coding Level of Care Code 91962 Subseq Hosp Care Lvl 3 Diagnoses Pneumonia due to COVID-19 virus U07.1; J12.82 Acute respiratory failure with hypoxia J96.01 Parkinson disease G20 Cognitive changes R41.89 Controlled diabetes mellitus with diabetic neuropathy E11.40 Diabetes mellitus customer support consultant insulin use: without customer support consultant use Diabetes mellitus type: type 2 Vitamin B 12 deficiency E53.8 Hypothyroidism E03.9 Hypothyroidism type: unspecified Hyperlipidemia E78.5 Hyperlipidemia type: unspecified Pancytopenia D61.818 UIP (usual interstitial pneumonitis) J84.112 DVT prophylaxis Z29.9 (1) Hyperlipidemia Hyperlipidemia type: unspecified Qualified Code(s): E78.5 - Hyperlipidemia, unspecified (2) Hypothyroidism Hypothyroidism type: unspecified Qualified Code(s): E03.9 - Hypothyroidism, unspecified (3) Controlled diabetes mellitus with diabetic neuropathy Diabetes mellitus customer support consultant insulin use: without residential use Diabetes mellitus type: type 2 Qualified Code(s): E11.40 - Type 2 diabetes mellitus with diabetic neuropathy, unspecified
[2020-05-13] MEDS: LEVOTHYROXINE SODIUM 25 MCG TABLET PO SCH (05:21)
[2020-05-13 06:28] LABS: Basophils # (auto) 0.01 K/uL (0-0.2); Basophils % (auto) 0.2 %; Eosinophils # (auto) 0.01 K/uL (0-0.5); Eosinophils % (auto) 0.2 %; Hematocrit (blood only) 39.1 % (42-52); Hemoglobin 13.2 g/dL (14.0-18.0); Lymphocytes # (auto) 0.79 K/uL (1.2-3.4); Lymphocytes % (auto) 17.6 %; Mean Corpuscular Hemoglobin 30.8 pg (25-34); Mean Corpuscular Hgb Conc 33.8 g/dL (32-36); Mean Corpuscular Volume 91.1 fL (80-100); Mean Platelet Volume 9.6 fL (7.4-10.4); Monocytes # (auto) 0.69 K/uL (0.11-0.59); Monocytes % (auto) 15.3 %; Neutrophils % (auto) 66.7 %; Platelet Count 159 K/uL (130-400); RDW Coefficient of Variation 13.3 % (11.5-14.5); RDW Standard Deviation 44.4 fL (36.4-46.3); Red Blood Count 4.29 M/uL (4.7-6.1)
[2020-05-13 06:52] LABS: BUN Creatinine Ratio 28.3 (10-20); Calcium 8.7 mg/dl (8.5-10.1); Creatinine Clr Calc Pharmacy 88.1 ml/min; Est GFR (African American) 96.9; Est GFR (Non-African American) 83.6; Potassium 3.8 mmol/L (3.5-5.1)
[2020-05-13] MEDS: metFORMIN HCL 500 MG TAB PO SCH (07:42)
[2020-05-13] MEDS: dexAMETHasone 6 MG in SYRINGE 0 ML PO SCH (09:27)
[2020-05-13] MEDS: ENOXAPARIN INJ 60 MG/0.6 ML SYR SQ SCH ×2 (09:27→20:01)
[2020-05-13] MEDS: amLODIPine BESYLATE 5 MG TAB PO SCH (09:30)
[2020-05-13] MEDS: CARBIDOPA/LEVODOPA 25/100MG TAB PO SCH ×4 (09:31→20:03)
[2020-05-13] MEDS: CHOLECALCIFEROL 1,000 UNITS 25 MCG TAB PO SCH (09:31)
[2020-05-13] MEDS: LISINOPRIL/HCTZ 10/12.5MG TAB PO SCH (09:31)
[2020-05-13] MEDS: CYANOCOBALAMIN 500 MCG TABLET (VITAMIN B-12) PO SCH (09:31)
[2020-05-13] MEDS: guaiFENesin 600 MG TABCR PO SCH ×2 (09:31→20:03)
[2020-05-13] MEDS: ASPIRIN 81 MG ECTAB PO SCH (12:44)
[2020-05-13] MEDS: REMDESIVIR 100 MG in SODIUM CHLORIDE 0.9% 230 ML IV SCH (12:44)
[2020-05-13] MEDS: SODIUM CHLORIDE 0.9% 10ML FLUSH IV SCH (13:50)
[2020-05-13] MEDS: ATORVASTATIN 40 MG TAB PO SCH (20:01)
[2020-05-13] MEDS: TAMSULOSIN HCL 0.4 MG CAP PO SCH (20:01)
[2020-05-13] MEDS ORDERED: QUEtiapine FUMARATE 25 MG TABLET PO SCH (21:00)
--- NOTE | 2020-05-13 21:59 | Hospitalist Progress Note ---
Date of Service May 13, 2020 Assessment & Plan (1) Pneumonia due to COVID-19 virus: With mild hypoxia at admission but now resolved. Day #3 remdesivir. Plan 5 days. Day #2 dexamethasone. Plan 10 days. s/p convalescent plasma without incident. Pulmonary toilet. Incentive johnna. DVT proph - lovenox 50mg BID. Continue low-dose asa 81mg daily (2) Acute respiratory failure with hypoxia: 2nd COVID pneumonia. hypoxia resolved. No evidence of complicating acute CHF. Low suspicion for PE. Does have baseline UIP per CT chest in 2019. (3) Metabolic encephalopathy: 2nd COVID, hospital delirium, etc. seroquel 12.5 mg at HS and prn daytime may need sitter tonight (4) Parkinson disease: Continue Carbidopa 25/Levadopa 100 PO QID PT, OT while here (5) Cognitive changes: uncertain if met encephalopathy from COVID or baseline dementia from parkinson's - likely both see above (6) Controlled diabetes mellitus with diabetic neuropathy: a1c 6.3% hold metformin novolog sliding and correction/carb ratio (7) Vitamin B 12 deficiency: b12 level wnl cont b12 supplement (8) Hypothyroidism: continue Levothyroxine 25mcg TSH 2.4 this admission (9) Hyperlipidemia: cont statin (10) Pancytopenia: suspect 2nd to COVID WBC count slowly trending up cbc in am (11) UIP (usual interstitial pneumonitis): CT chest 2019 crackles on exam -- could be COVID and/or UIP stable exam today however hypoxia resolved (12) DVT prophylaxis: lovenox 50mg BID daughter extensively updated by phone tonight once encephalopathy improves likely to be able to go home with ongoing isolation Admission and Anticipated Discharge Date Admission Date: May 11, 2020 Subjective patient walking about in the room upon arrival. nursing staff was present providing supervision. he was confused, stating he "needed to call Mariela [his daughter] and go down the [place] to get the horses." I explained to him he was in the hospital but he didn't realize that was the case. could not tell me the year or month. staff report improving appetite. no cough. no dyspnea. he is off O2. apparently sundowned most of last night and didn't sleep well. Review of Systems Respiratory: no dyspnea Cardiovascular: no chest pain Gastrointestinal: no abdominal pain, no vomiting and no diarrhea/loose stools Physical Exam Constitutional: + altered mental status; no acute distress (looks good today) ENMT: external ear and nose normal, oropharynx normal Respiratory: no respiratory distress Auscultation: + rales (soft, b/l, fine (bases)); no wheezes Cardiovascular: Rate/Rhythm: regular rate and regular rhythm Heart Sounds: normal S1 and normal S2 Vessels: posterior tibial pulses present and dorsalis pedis pulses present; no JVD Extremities: no edema Gastrointestinal (Abdomen): normal bowel sounds, soft, nontender, no hepatosplenomegaly Neurologic: Motor/Sensory: + tremor Psychiatric: Orientation: alert and oriented to person; + not oriented to place and + not oriented to time Results & Data Results & Data ([facility]) Vital Signs (Past 12 Hours) Vital Signs Temp Pulse Resp BP Pulse Ox 05/13/20 15:57 36.1 C L 91 H 18 131/73 94 Laboratory Results Laboratory Results - last 24 hr 05/13/20 05/13/20 06:05 06:05 WBC 4.50 L RBC 4.29 L Hgb 13.2 L Hct 39.1 L MCV 91.1 MCH 30.8 MCHC 33.8 RDW Std Deviation 44.4 RDW Coeff of Nisha 13.3 Plt Count 159 MPV 9.6 Immature Gran % (Auto) 0.0 Neut % (Auto) 66.7 Lymph % (Auto) 17.6 [place] % (Auto) 15.3 Eos % (Auto) 0.2 Baso % (Auto) 0.2 Neut # (Auto) 3.00 Lymph # (Auto) 0.79 L [place] # (Auto) 0.69 H Eos # (Auto) 0.01 Baso # (Auto) 0.01 Immature Gran # (Auto) 0.00 Sodium 137 Potassium 3.8 Chloride 104 Carbon Dioxide 27 Anion Gap 6.0 BUN 21 H Creatinine 0.75 Est Cr Clr Drug Dosing 88.1 Est GFR ( Amer) 96.9 Est GFR (Non-Af Amer) 83.6 BUN/Creatinine Ratio 28.3 H Glucose 128 H Calcium 8.7 AST 14 L ALT 11 L PG Care Time/CCT Total # of Minutes Spent Total Time Spent with Patient: Total time spent is greater than 50% in coordination of care (as documented) at patient's floor/unit and/or counseling patient: Coding Level of Care Code 11243 Subseq Hosp Care Lvl 2 Diagnoses Pneumonia due to COVID-19 virus U07.1; J12.82 Acute respiratory failure with hypoxia J96.01 Metabolic encephalopathy G93.41 Parkinson disease G20 Cognitive changes R41.89 Controlled diabetes mellitus with diabetic neuropathy E11.40 Diabetes mellitus long term care pharmacist insulin use: without long term care pharmacist use Diabetes mellitus type: type 2 Vitamin B 12 deficiency E53.8 Hypothyroidism E03.9 Hypothyroidism type: unspecified Hyperlipidemia E78.5 Hyperlipidemia type: unspecified Pancytopenia D61.818 UIP (usual interstitial pneumonitis) J84.112 DVT prophylaxis Z29.9 (1) Hyperlipidemia Hyperlipidemia type: unspecified Qualified Code(s): E78.5 - Hyperlipidemia, unspecified (2) Hypothyroidism Hypothyroidism type: unspecified Qualified Code(s): E03.9 - Hypothyroidism, unspecified (3) Controlled diabetes mellitus with diabetic neuropathy Diabetes mellitus long-term insulin use: without long-term use Diabetes mellitus type: type 2 Qualified Code(s): E11.40 - Type 2 diabetes mellitus with diabetic neuropathy, unspecified
[2020-05-14] MEDS: LEVOTHYROXINE SODIUM 25 MCG TABLET PO SCH (06:04)
[2020-05-14] MEDS: guaiFENesin 600 MG TABCR PO SCH (07:44)
[2020-05-14] MEDS: CARBIDOPA/LEVODOPA 25/100MG TAB PO SCH ×2 (07:44→12:34)
[2020-05-14 07:46] LABS: Basophils # (auto) 0.01 K/uL (0-0.2); Basophils % (auto) 0.2 %; Eosinophils # (auto) 0.02 K/uL (0-0.5); Eosinophils % (auto) 0.5 %; Hematocrit (blood only) 38.9 % (42-52); Hemoglobin 13.2 g/dL (14.0-18.0); Immature Granulocytes # (auto) 0.01 K/uL (0.00-0.02); Immature Granulocytes % (auto) 0.2 %; Lymphocytes # (auto) 0.91 K/uL (1.2-3.4); Lymphocytes % (auto) 22.2 %; Mean Corpuscular Hemoglobin 30.6 pg (25-34); Mean Corpuscular Hgb Conc 33.9 g/dL (32-36); Mean Platelet Volume 9.4 fL (7.4-10.4); Monocytes # (auto) 0.48 K/uL (0.11-0.59); Monocytes % (auto) 11.7 %; Neutrophils # (auto) 2.66 K/uL (1.4-6.5); Neutrophils % (auto) 65.2 %; Platelet Count 169 K/uL (130-400); RDW Coefficient of Variation 13.2 % (11.5-14.5); RDW Standard Deviation 43.7 fL (36.4-46.3); Red Blood Count 4.32 M/uL (4.7-6.1); White Blood Count 4.09 K/uL (4.8-10.8)
[2020-05-14] MEDS: dexAMETHasone 6 MG in SYRINGE 0 ML PO SCH ×2 (07:46→09:15)
[2020-05-14] MEDS: ASPIRIN 81 MG ECTAB PO SCH (07:46)
[2020-05-14] MEDS: amLODIPine BESYLATE 5 MG TAB PO SCH (07:46)
[2020-05-14] MEDS: LISINOPRIL/HCTZ 10/12.5MG TAB PO SCH (07:46)
[2020-05-14] MEDS: CHOLECALCIFEROL 1,000 UNITS 25 MCG TAB PO SCH (07:47)
[2020-05-14] MEDS: metFORMIN HCL 500 MG TAB PO SCH (07:47)
[2020-05-14] MEDS: ENOXAPARIN INJ 60 MG/0.6 ML SYR SQ SCH (07:48)
[2020-05-14] MEDS: CYANOCOBALAMIN 500 MCG TABLET (VITAMIN B-12) PO SCH (07:48)
[2020-05-14] MEDS ORDERED: QUEtiapine FUMARATE 25 MG TABLET PO ONE (08:00)
[2020-05-14 08:22] LABS: BUN Creatinine Ratio 27.3 (10-20); Calcium 9.2 mg/dl (8.5-10.1); Creatinine Clr Calc Pharmacy 89.3 ml/min; Est GFR (African American) 97.5; Est GFR (Non-African American) 84.1; Potassium 3.4 mmol/L (3.5-5.1)
[2020-05-14] MEDS ORDERED: POTASSIUM CHLORIDE CRTAB 20 MEQ TABCR PO STA (10:23)
[2020-05-14] MEDS: REMDESIVIR 100 MG in SODIUM CHLORIDE 0.9% 230 ML IV SCH (12:35)
--- NOTE | 2020-05-14 12:42 | Hospitalist Progress Note ---
Date of Service May 14, 2020 Assessment & Plan (1) Pneumonia due to COVID-19 virus: mild hypoxia resolved. . Day #3 remdesivir. Day #2 dexamethasone. Home on decadron taper. Consented his daughter, by phone, for convalescent plasma. Risks and benefits discussed. He is <5 days into the illness thus good candidate for plasma. Pulmonary toilet. Incentive johnna. DVT proph - lovenox 50mg BID. added low-dose asa 81mg daily (2) Acute respiratory failure with hypoxia: 2nd COVID pneumonia. No evidence of complicating acute CHF. Low suspicion for PE. Does have baseline UIP per CT chest in 2019. (3) Parkinson disease: Continue Carbidopa 25/Levadopa 100 PO QID PT, OT while here (4) Cognitive changes: uncertain if met encephalopathy from COVID or baseline dementia from parkinson's follow (5) Controlled diabetes mellitus with diabetic neuropathy: a1c 6.3% hold metformin while hospitalized. Restart at discharge novolog sliding and correction/carb ratio (6) Vitamin B 12 deficiency: b12 level wnl cont b12 supplement (7) Hypothyroidism: continue Levothyroxine 25mcg TSH 2.4 this admission (8) Hyperlipidemia: cont statin (9) Pancytopenia: 2nd to COVID?? trend cbc (10) UIP (usual interstitial pneumonitis): CT chest 2019 crackles on exam -- could be COVID and/or UIP (11) DVT prophylaxis: lovenox 50mg BID Dispo: home today, 05/14 Admission and Anticipated Discharge Date Admission Date: May 11, 2020 Subjective Alert. On room air. Afebrile. Baseline dementia and confusion. 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 He will be discharge today on decadron taper. Self-quarantine for 10 days from first dx date if asymptomatic. Review of Systems Review of Systems: All systems reviewed & are unremarkable except as noted in HPI & below Physical Exam Constitutional: WD/WN, vitals as above Eyes: PERRL, conjunctivae normal, anicteric sclerae ENMT: external ear and nose normal, oropharynx normal Neck: trachea midline, no thyromegaly Respiratory: normal respiratory effort, lungs clear to auscultation Cardiovascular: Rate/Rhythm: regular rate and regular rhythm Gastrointestinal (Abdomen): normal bowel sounds, soft, nontender, no hepatosplenomegaly Musculoskeletal: no cyanosis or clubbing, extremities motor strength 5/5 Skin: no rashes, warm and dry Neurologic: CN's II-XI intact bilaterally Results & Data Results & Data ([facility]) Vital Signs (Past 12 Hours) Vital Signs Temp Pulse Resp BP Pulse Ox 05/14/20 07:40 72 05/14/20 07:11 36.8 C 53 L 16 119/61 95 Laboratory Results 05/14/20 06:57 05/14/20 06:57 PG Care Time/CCT Total # of Minutes Spent Total Time Spent with Patient: Total time spent is greater than 50% in coordination of care (as documented) at patient's floor/unit and/or counseling patient: Coding Level of Care Code 01007 Subseq Hosp Care Lvl 3 Diagnoses Pneumonia due to COVID-19 virus U07.1; J12.82 Acute respiratory failure with hypoxia J96.01 Parkinson disease G20 Cognitive changes R41.89 Controlled diabetes mellitus with diabetic neuropathy E11.40 Diabetes mellitus type: type 2 Diabetes mellitus fpc insulin use: without terminal operator use Vitamin B 12 deficiency E53.8 Hypothyroidism E03.9 Hypothyroidism type: unspecified Hyperlipidemia E78.5 Hyperlipidemia type: unspecified Pancytopenia D61.818 UIP (usual interstitial pneumonitis) J84.112 DVT prophylaxis Z29.9 (1) Controlled diabetes mellitus with diabetic neuropathy Diabetes mellitus type: type 2 Diabetes mellitus fpc insulin use: without fpc use Qualified Code(s): E11.40 - Type 2 diabetes mellitus with diabetic neuropathy, unspecified (2) Hypothyroidism Hypothyroidism type: unspecified Qualified Code(s): E03.9 - Hypothyroidism, unspecified (3) Hyperlipidemia Hyperlipidemia type: unspecified Qualified Code(s): E78.5 - Hyperlipidemia, unspecified
[2020-05-14] MEDS: SODIUM CHLORIDE 0.9% 10ML FLUSH IV SCH (13:52)
[2020-05-14] MEDS ORDERED: BUDESONIDE 0.5 MG/2 ML VIAL (PULMICORT) NEB SCH (19:00)
--- NOTE | 2020-06-12 14:23 | Discharge Summary ---
Date of Service June 12, 2020 Admission HPI Per Admitting Provider 84 YOM with past medical history of HTN, hypothyroidism, B12 deficiency, Parkinson's disease, BPH, arthritis, and recent septoplasty repair following a fall. For the past 3-4 days he began feeling unwell with fevers, cough and weakness to the point he has needed his cane to regularly get around. He reportedly is normally able to get around very independently, but is also having difficulty maintaining his self care since earlier this week. 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 Patient came to the ER via EMS and room air SPO2 was 91%, had a CXR done and head CT performed. His organ indices and biomarkers are not elevated at this time. Patient will be admitted for monitoring of his response early in his COVID infection and assist with his care and weakness. Principal Diagnosis Covid pneumonia, acute hypoxic respiratory failure Discharge Data Allergies Allergy/AdvReac Type Severity Reaction Status Date / Time No Known Drug Allergies Allergy Verified 05/11/20 13:40 Consultations 05/11/20 12:21 ED Decision to Admit Stat Ordered Studies 05/11/20 10:45 CT head/brain wo con Stat Hospital Course (1) Pneumonia due to COVID-19 virus: With mild hypoxia at admission but now resolved. Day #3 remdesivir. Plan 5 days. Day #2 dexamethasone. Plan 10 days. s/p convalescent plasma without incident. Pulmonary toilet. Incentive johnna. DVT proph - lovenox 50mg BID. Continue low-dose asa 81mg daily (2) Acute respiratory failure with hypoxia: 2nd COVID pneumonia. hypoxia resolved. No evidence of complicating acute CHF. Low suspicion for PE. Does have baseline UIP per CT chest in 2019. (3) Metabolic encephalopathy: 2nd COVID, hospital delirium, etc. seroquel 12.5 mg at HS and prn daytime may need sitter tonight (4) Parkinson disease: Continue Carbidopa 25/Levadopa 100 PO QID PT, OT while here (5) Cognitive changes: uncertain if met encephalopathy from COVID or baseline dementia from parkinson's - likely both see above (6) Controlled diabetes mellitus with diabetic neuropathy: a1c 6.3% hold metformin while hospitalized. Restart at discharge novolog sliding and correction/carb ratio (7) Vitamin B 12 deficiency: b12 level wnl cont b12 supplement (8) Hypothyroidism: continue Levothyroxine 25mcg TSH 2.4 this admission (9) Hyperlipidemia: cont statin (10) Pancytopenia: suspect 2nd to COVID WBC count slowly trending up cbc in am (11) UIP (usual interstitial pneumonitis): CT chest 2020 crackles on exam -- could be COVID and/or UIP stable exam today however hypoxia resolved (12) DVT prophylaxis: lovenox 50mg BID once encephalopathy improves likely to be able to go home with ongoing isolation Total Time Total Time Spent Total Time Spent (In Minutes): 35 minutes Total Time Includes: Examination of the Patient, Discharge Planning and Medication Reconciliation Discharge Plan Discharge Items Patient Disposition: Home - Self-Care Reason For Visit: COVID Discharge Diagnosis: Covid pneumonia, hypoxia Activity: Resume your previous activity Activity Comment: self-quarantine for 10 days from first covid diagnosis date Non-emergency contact: Primary Care Provider Call non-emergency contact if: you have any medication questions and your symptoms worsen Follow-up/Referrals: Sharath Wang MD [Primary Care Provider] - (Office will call patient with appointment date and time) Diet: Carb Consistent or DM2 Addtl Attending Provider Instructions: self-quarantine for 10 days from first covid diagnosis date. Pending Studies at Discharge: No Stand-Alone Forms: My [employer], Smoking Cessation Medications and DC Order Prescriptions: New aspirin 81 mg Tablet,Delayed Release (Dr/Ec) 81 mg PO QAM Qty: 30 RF: 0 Continued carbidopa-levodopa 25-100 mg tablet 1 tab PO QID Qty: 120 RF: 11 cholecalciferol (vitamin D3) [Vitamin D3] 25 mcg (1,000 unit) capsule 1,000 unit PO DAILY Qty: 30 RF: 0 triamcinolone acetonide 0.1 % cream 1 appln TOP BID PRN (Reason: itching) Qty: 80 RF: 3 amlodipine 5 mg tablet 5 mg PO QAM RF: 0 levothyroxine [Synthroid] 25 mcg tablet 25 mcg PO QAM RF: 0 tamsulosin 0.4 mg capsule 0.4 mg PO PM RF: 0 lisinopril-hydrochlorothiazide 10-12.5 mg tablet 1 tab PO QAM RF: 0 cyanocobalamin (vitamin B-12) [Vitamin B-12] 1,000 mcg Tablet 0 mcg PO QAM RF: 0 cinnamon bark [Cinnamon] 500 mg Capsule 500 mg PO QAM RF: 0 metformin 500 mg tablet 500 mg PO QAM RF: 0 No Action atorvastatin 40 mg tablet 40 mg PO QPM Qty: 90 RF: 3 Discharge Orders: Discharge Order (Routine); Ordered 05/14/20 Ordered By: Gregg Gomez/Other Patient Handouts: Caring for Someone Who Has COVID-19 Admission Data Admit Date/Time: 05/11/20 12:43 Attending Provider: Gregg Espinoza Admit Provider: Elian Gray Primary Care Provider: Sharath Wang Other Interventions: Discharge Summary Assessment (RN) Last Done: 05/14/20 13:22 Coding Level of Care Code D/C Day Management >30 mins Diagnoses Pneumonia due to COVID-19 virus U07.1; J12.82 Acute respiratory failure with hypoxia J96.01 Metabolic encephalopathy G93.41 Parkinson disease G20 Cognitive changes R41.89 Controlled diabetes mellitus with diabetic neuropathy E11.40 Diabetes mellitus type: type 2 Diabetes mellitus computer terminal operator insulin use: without computer terminal operator use Vitamin B 12 deficiency E53.8 Hypothyroidism E03.9 Hypothyroidism type: unspecified Hyperlipidemia E78.5 Hyperlipidemia type: unspecified Pancytopenia D61.818 UIP (usual interstitial pneumonitis) J84.112 DVT prophylaxis Z29.9
== END 2020-05-14 15:00 | disposition home or self-care (01) | DRG 177 ==
LOC: ED 10:50 → SUATTDRO 12:43 → 3N 12:43

== ENCOUNTER 2022-04-07 12:12 | Inpatient (IN) ==
[2022-04-07] MEDS ORDERED: SODIUM CHLORIDE 0.9% 1000ML 1,000 ML IV SCH (12:45)
[2022-04-07 13:06] LABS: Albumin Globulin Ratio 1.6 (0.9-2); Albumin Level 3.9 gm/dl (3.4-5.0); BUN Creatinine Ratio 18.8 (10-20); Bilirubin,Total 1.5 mg/dl (0.2-1.0); Calcium 9.4 mg/dl (8.5-10.1); Creatinine Clr Calc Pharmacy 71.4 ml/min; Est GFR (African American) 93.1 ml/min; Est GFR (Non-African American) 80.3 ml/min; Globulin 2.5 gm/dl (2.5-4.0); Potassium 3.8 mmol/L (3.5-5.1); Total Protein 6.4 gm/dl (6.0-8.3)
[2022-04-07 13:10] LABS: Troponin I High Sensitivity 14.9 pg/ml (0-20)
[2022-04-07 13:21] LABS: Appearance Urine Clear (Clear); Bacteria Urine Automated Negative (Negative); Blood Urine Negative (Negative); Color Urine Dark Yellow; Glucose Urine UA Negative (Negative); Ketones Urine 1+ (Negative); Leukocyte Esterase Urine Negative (Negative); Nitrite Urine Positive (Negative); Protein Urine Trace (Negative); Specific Gravity Urine 1.029 (1.000-1.030); Urobilinogen Urine Negative (Negative)
[2022-04-07 13:24] LABS: Basophils # (auto) 0.03 K/uL (0-0.2); Basophils % (auto) 0.3 %; Eosinophils # (auto) 0.04 K/uL (0-0.50); Eosinophils % (auto) 0.4 %; Hematocrit (blood only) 42.9 % (42.0-52.0); Hemoglobin 14.3 g/dl (14.0-18.0); Immature Granulocytes # (auto) 0.03 K/uL (0.01-0.20); Immature Granulocytes % (auto) 0.3 %; Lymphocytes # (auto) 0.63 K/uL (1.2-3.4); Lymphocytes % (auto) 6.3 %; Mean Corpuscular Hemoglobin 29.8 pg (25.0-34.0); Mean Corpuscular Hgb Conc 33.3 g/dL (32.0-36.0); Mean Corpuscular Volume 89.4 fL (80.0-100.0); Mean Platelet Volume 9.5 fL (9.4-12.4); Monocytes # (auto) 0.98 K/uL (0.11-0.59); Monocytes % (auto) 9.9 %; Neutrophils # (auto) 8.22 K/uL (1.40-6.50); Neutrophils % (auto) 82.8 %; Platelet Count 162 K/uL (130-400); RDW Coefficient of Variation 13.3 % (11.5-14.5); RDW Standard Deviation 43.9 fL (36.4-46.3); White Blood Count 9.93 K/ul (4.8-10.8)
[2022-04-07 13:36] LABS: Bilirubin Urine 1+ (Negative)
--- NOTE | 2022-04-07 13:36 | XRay Report ---
XR chest 1V portable CLINICAL HISTORY: confusion TECHNIQUE: Single frontal radiograph of the chest was obtained. Comparison: None available at the time of this dictation. FINDINGS: No lines and tubes are seen. The cardiomediastinal silhouette is normal. Reticular interstitial opaci ties are seen. No evidence of pleural effusion or pneumothorax. IMPRESSION: No acute chest disease. ACT 112: Negative or not required by law. Electronically signed by: Ky Motta M.D. 04/07/2022 1:35 PM
--- NOTE | 2022-04-07 14:01 | Emergency Department Note ---
Impression & Plan Coarse tremors, Parkinsons disease, Hypoxia, Hallucinations ED Provider Note Provider: John Jones MD DATE OF SERVICE: 04/07/2022 CHIEF COMPLAINT: Increased tremors, confusion HISTORY OF PRESENT ILLNESS: Patient is a 86-year-old gentleman history of type 2 diabetes, Parkinson's, chronic respiratory failure on oxygen presenting from home found to be hypoxic on his normal 4 L of oxygen and more confused today. Is on hospice. Hospice nurse referred. Patient not the best historian but daughter present here states last day or 2 decreasing appetite and now more confused. 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 Did not actually do this obviously. No falls reported. Patient denies pain. Daughter states did have a little bit of back discomfort. Has been having some significant tremors. Underlying Parkinson's but tremor is much worse according to daughter. Patient denies any chest pain, abdominal pain, shortness of breath. No significant new recent medication changes noted. Did have oral Ativan from hospice pack last night but did not help with symptoms. PAST MEDICAL HISTORY: As noted above MEDICATIONS: Reviewed home medications, currently limiting SOCIAL HISTORY: Resides at home but has home health/hospice care PHYSICAL EXAM: GENERAL: alert and oriented in no acute distress on stretcher not the best historian to events of last night Head: normocephalic and atraumatic EYES: No injection, discharge or icterus. PERRL NECK: Trachea midline. Supple. ENT: Mucous membranes pink and moist. LUNGS: Airway patent. No retractions. Breath sounds clear except for some faint crackles in the lung bases HEART: Regular rate and rhythm. No chest wall tenderness ABDOMEN: Soft and non-tender, without guarding or rebound. SKIN: Acyanotic, warm, dry, without rashes EXTREMITIES: Without significant deformity and trace edema of the lower extremities. NEUROLOGICAL: No focal deficits but mild resting tremor. No aphasia. No facial droop or slurred speech. Normal strength and tone in the extremities. Sensation to gross touch normal. CONTINUOUS CARDIAC MONITORING: was ordered and showed a heart rate of 70s-90s bpm in normal sinus rhythm Patient's laboratory studies and imaging reviewed. Differential includes Infection, dehydration, metabolic abnormality, hypo/hyperglycemia, electrolyte disturbance, anemia, hypoxia, cardiac sources, intracerebral event, toxicologic, neurologic, as well as other pathologies. IMPRESSION/MEDICAL DECISION MAKING: Patient on hospice with worsening confusion, decreased intake, now significant worsening tremor overnight. Does have some home hospice care but given the significant worsening they called to bring him in. Here with daughter. No falls reported. Basic blood work here without significant abnormality. Do not see uremia or other significant electrolyte abnormality. Urinalysis not inclusive for infection but with some nitrates. Will send for culture. Afebri le here. Daughter states while hospice would be amenable to fluids and antibiotics. Discussed with her possible utility of a CT of the head to exclude intracranial abnormality. Given the worsening tremors and is almost falling off the bed given the severity of these do not feel that he is able to be cared for at home according to the daughter. Did receive several doses of IV Ativan. Not a lot of improvement. Discussed with [id number] via phone as well as the patient's sister at bedside. Difficult to obtain a clear pulse oximetry given the patient's tremor at times but later noted to be more hypoxic and placed on supplemental oxygen. Again unclear etiology of this could have possibly aspirated not have significant changes on the x-ray at this is possible. Given his hospice status I do not believe anticoagulation or aggressive CT angiogram would be indicated at this point; and upon short reevaluation weans down to 3 to 5 L of oxygen. Believe some of this is related to breath-holding exertion during some of the spells where he is shaking. Again I do not believe this represents seizure activity. Discussed with the hospitalist given poor control of his symptoms and the severity. DIAGNOSIS: Parkinson's disorder, tremors, hallucinations DISPOSITION: Hospitalist will evaluate Patient was agreeable with this plan. Past Med/Surg History Medical History (Updated 04/07/22 @ 18:19 by John Jones M.D.) Benign essential hypertension BPH (benign prostatic hyperplasia) Cognitive changes Confusion Controlled diabetes mellitus with diabetic neuropathy NIDDM Dementia Diabetes mellitus, type 2 Diabetic peripheral neuropathy Former smoker History of anesthesia reaction PT VERY CONFUSED FOR SEVERAL DAYS AFTER KNEE REPLACEMENT > DOES HAVE UNDERLYING MILD CONFUSION PER DAUGHTER Hypercholesterolemia Hyperlipidemia Hypothyroidism Hypothyroidism Hypothyroidism Hypoxia Lung infiltrate Nasal airway abnormality Parkinson disease Parkinsons disease Primary osteoarthritis of knee Pulmonary infiltrate UIP (usual interstitial pneumonitis) Vitamin B 12 deficiency Surgical History History of cataract surgery BILAT History of cholecystectomy History of colonoscopy History of tooth extraction Status post right knee replacement Family History Brother Colon cancer Other No pertinent family history Social History Smoking Status: Never smoker Second Hand Exposure: No; Hx Alcohol Use: Yes Alcohol type: hard liquor Hx Substance Use: No Preferred Language: Khmer Communication Ability: Effective Visual Impairment: No Limitations Hearing Ability: Normal [employer] Consultant Required: No Beliefs That Will Affect Care: None marital status: / Current Living Situation: Family Current Living Situation Comment: with daughter current occupational status: retired 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 Feels Safe at Home: Yes Dental Care, Regularly: Yes Seatbelt Use: always Sunscreen Use: No Assistive Devices: None Allergies Allergies Allergy/AdvReac Type Severity Reaction Status Date / Time No Known Drug Allergies Allergy Verified 04/07/22 16:39 Home Meds Previous Rx's Medication Instructions Recorded Wheeled Walker #1 ea 09/11/20 tamsulosin 0.4 mg capsule 0.4 mg PO PM #90 caps 01/04/22 levothyroxine 50 mcg tablet 50 mcg PO QAM #90 tabs 02/22/22 metformin 500 mg tablet 500 mg PO QAM #90 tabs 02/24/22 carbidopa 25 mg-levodopa 100 mg 1 tab PO QID #120 tabs 03/03/22 tablet Portable Oxygen #4 ea 03/15/22 Results & Data (ED) Vital Signs Vital Signs - 24 hr 04/07/22 12:28 04/07/22 12:41 04/07/22 12:41 Temperature 37.1 C Temperature Source Oral Pulse Rate 93 H Pulse Rate [Right Finger] 87 Respiratory Rate 19 Respiratory Effort / Characteristics Respiratory Depth Blood Pressure 143/88 H Blood Pressure [Right Arm] 143/88 H Blood Pressure Mean 106 Blood Pressure Mean [Right Arm] 106 Blood Pressure Position [Right Arm] Pulse Oximetry 93 94 Oxygen Delivery Method Nasal Cannula Nasal Cannula Nasal Cannula Oxygen Flow Rate 2 2 2 Sepsis Recent Fever Within 48 Hours No Sepsis New/Unexplained Change in Mental Status Yes Sepsis Action Taken by Nursing No Action Required Pulse Oximetry Post Tiitration 94 04/07/22 12:43 04/07/22 13:11 04/07/22 15:45 Temperature Temperature Source Pulse Rate 98 H Pulse Rate [Right Finger] 89 Respiratory Rate 24 Respiratory Effort / Characteristics Respiratory Depth Deep Blood Pressure Blood Pressure [Right Arm] 115/88 Blood Pressure Mean Blood Pressure Mean [Right Arm] 97 Blood Pressure Position [Right Arm] Lying Pulse Oximetry 94 78 L Oxygen Delivery Method Nasal Cannula Nasal Cannula Oxygen Flow Rate 2 2 Sepsis Recent Fever Within 48 Hours Sepsis New/Unexplained Change in Mental Status Sepsis Action Taken by Nursing Pulse Oximetry Post Tiitration 04/07/22 15:58 Temperature Temperature Source Pulse Rate Pulse Rate [Right Finger] 93 H Respiratory Rate 20 Respiratory Effort / Characteristics Labored Respiratory Depth Deep Blood Pressure Blood Pressure [Right Arm] 115/88 Blood Pressure Mean Blood Pressure Mean [Right Arm] 97 Blood Pressure Position [Right Arm] Lying Pulse Oximetry 93 Oxygen Delivery Method Oxymask Oxygen Flow Rate 5 Sepsis Recent Fever Within 48 Hours Sepsis New/Unexplained Change in Mental Status Sepsis Action Taken by Nursing Pulse Oximetry Post Tiitration Laboratory Data 04/07/22 12:24 04/07/22 12:24 Lab Results 04/07/22 04/07/22 04/07/22 Range/Units 12:24 12:24 12:24 WBC 9.93 (4.8-10.8) K/ul RBC 4.80 (4.70-6.10) M/uL Hgb 14.3 (14.0-18.0) g/dl Hct 42.9 (42.0-52.0) % MCV 89.4 (80.0-100.0) fL MCH 29.8 (25.0-34.0) pg MCHC 33.3 (32.0-36.0) g/dL RDW Std Deviation 43.9 (36.4-46.3) fL RDW Coeff of Nisha 13.3 (11.5-14.5) % Plt Count 162 (130-400) K/uL MPV 9.5 (9.4-12.4) fL Immature Gran % (Auto) 0.3 % Neut % (Auto) 82.8 % Lymph % (Auto) 6.3 % [place] % (Auto) 9.9 % Eos % (Auto) 0.4 % Baso % (Auto) 0.3 % Neut # (Auto) 8.22 H (1.40-6.50) K/uL Lymph # (Auto) 0.63 L (1.2-3.4) K/uL [place] # (Auto) 0.98 H (0.11-0.59) K/uL Eos # (Auto) 0.04 (0-0.50) K/uL Baso # (Auto) 0.03 (0-0.2) K/uL Immature Gran # (Auto) 0.03 (0.01-0.20) K/uL Sodium 139 (136-145) mmol/L Potassium 3.8 (3.5-5.1) mmol/L Chloride 106 (98-107) mmol/L Carbon Dioxide 28 (21-32) mmol/L Anion Gap 5 (3-11) BUN 15 (6-23) mg/dl Creatinine 0.80 (0.6-1.4) mg/dl Est Cr Clr Drug Dosing 71.4 ml/min Est GFR ( Amer) 93.1 ml/min Est GFR (Non-Af Amer) 80.3 ml/min BUN/Creatinine Ratio 18.8 (10-20) Glucose 136 H (70-99(Fasting)) mg/dl Lactate 1.1 (0.4-2.0) mmol/L Calcium 9.4 (8.5-10.1) mg/dl Total Bilirubin 1.5 H (0.2-1.0) mg/dl AST 12 L (13-39) U/L ALT 5 L (7-52) U/L Alkaline Phosphatase 72 (34-104) U/L Troponin I High Sens 14.9 (0-20) pg/ml Total Protein 6.4 (6.0-8.3) gm/dl Albumin 3.9 (3.4-5.0) gm/dl Globulin 2.5 (2.5-4.0) gm/dl Albumin/Globulin Ratio 1.6 (0.9-2) TSH (0.300-4.500) uIu/ml Urine Color Urine Appearance (Clear) Urine pH (4.5-7.5) Ur Specific [place] (1.000-1.030) Urine Protein (Negative) Urine Glucose (UA) (Negative) Urine Ketones (Negative) Urine Blood (Negative) Urine Nitrite (Negative) Urine Bilirubin (Negative) Urine Urobilinogen (Negative) Ur Leukocyte Esterase (Negative) Urine WBC (Auto) (0-5) /hpf Urine RBC (Auto) (0-4) /hpf U Hyaline Cast (Auto) (0-5) /lpf U Epithel Cells (Auto) (0-5) /lpf Urine Bacteria (Auto) (Negative) SARS-CoV-2, RNA, NAAT (NEGATIVE) 04/07/22 04/07/22 04/07/22 Range/Units 12:24 12:49 13:07 WBC (4.8-10.8) K/ul RBC (4.70-6.10) M/uL Hgb (14.0-18.0) g/dl Hct (42.0-52.0) % MCV (80.0-100.0) fL MCH (25.0-34.0) pg MCHC (32.0-36.0) g/dL RDW Std Deviation (36.4-46.3) fL RDW Coeff of Nisha (11.5-14.5) % Plt Count (130-400) K/uL MPV (9.4-12.4) fL Immature Gran % (Auto) % Neut % (Auto) % Lymph % (Auto) % [place] % (Auto) % Eos % (Auto) % Baso % (Auto) % Neut # (Auto) (1.40-6.50) K/uL Lymph # (Auto) (1.2-3.4) K/uL [place] # (Auto) (0.11-0.59) K/uL Eos # (Auto) (0-0.50) K/uL Baso # (Auto) (0-0.2) K/uL Immature Gran # (Auto) (0.01-0.20) K/uL Sodium (136-145) mmol/L Potassium (3.5-5.1) mmol/L Chloride (98-107) mmol/L Carbon Dioxide (21-32) mmol/L Anion Gap (3-11) BUN (6-23) mg/dl Creatinine (0.6-1.4) mg/dl Est Cr Clr Drug Dosing ml/min Est GFR ( Amer) ml/min Est GFR (Non-Af Amer) ml/min BUN/Creatinine Ratio (10-20) Glucose (70-99(Fasting)) mg/dl Lactate (0.4-2.0) mmol/L Calcium (8.5-10.1) mg/dl Total Bilirubin (0.2-1.0) mg/dl AST (13-39) U/L ALT (7-52) U/L Alkaline Phosphatase (34-104) U/L Troponin I High Sens (0-20) pg/ml Total Protein (6.0-8.3) gm/dl Albumin (3.4-5.0) gm/dl Globulin (2.5-4.0) gm/dl Albumin/Globulin Ratio (0.9-2) TSH 3.964 (0.300-4.500) uIu/ml Urine Color Dark Yellow Urine Appearance Clear (Clear) Urine pH 5.0 (4.5-7.5) Ur Specific [place] 1.029 (1.000-1.030) Urine Protein Trace H (Negative) Urine Glucose (UA) Negative (Negative) Urine Ketones 1+ H (Negative) Urine Blood Negative (Negative) Urine Nitrite Positive A (Negative) Urine Bilirubin 1+ H (Negative) Urine Urobilinogen Negative (Negative) Ur Leukocyte Esterase Negative (Negative) Urine WBC (Auto) 1-5 (0-5) /hpf Urine RBC (Auto) 5-10 H (0-4) /hpf U Hyaline Cast (Auto) 1-5 (0-5) /lpf U Epithel Cells (Auto) 10-20 H (0-5) /lpf Urine Bacteria (Auto) Negative (Negative) SARS-CoV-2, RNA, NAAT NEGATIVE (NEGATIVE) Administered Medications Discontinued Medications Carbidopa/Levodopa (Carbidopa/Levodopa 25/100mg Tab) 1 tab PO ONCE ONE Stop: 04/07/22 15:28 Last Admin: 04/07/22 16:32 Dose: Not Given Documented By: MES Sodium Chloride (Nss 1000ml) 1,000 mls @ 999 mls/hr IV .[id number] MARIUSZ Stop: 04/07/22 13:45 Last Infusion: 04/07/22 13:45 Dose: 0 mls/hr Documented By: Admin: 04/07/22 12:43 Dose: 999 mls/hr Documented By: MES Ceftriaxone Sodium (Rocephin) 2,000 mg in 70 mls @ 140 mls/hr IV NOW STA Stop: 04/07/22 17:32 Last Infusion: 04/07/22 18:13 Dose: 0 mls/hr Documented By: Admin: 04/07/22 17:41 Dose: 140 mls/hr Documented By: GERMAINE Lorazepam (Lorazepam 2 Mg/1 Ml Vial) 1 mg IV NOW STA Stop: 04/07/22 14:17 Last Admin: 04/07/22 14:20 Dose: 1 mg Documented By: MES Lorazepam (Lorazepam 2 Mg/1 Ml Vial) 1 mg IV NOW STA Stop: 04/07/22 15:02 Last Admin: 04/07/22 15:05 Dose: 1 mg Documented By: MES Lorazepam (Lorazepam 2 Mg/1 Ml Vial) 1 mg IV NOW STA Stop: 04/07/22 15:28 Last Admin: 04/07/22 15:41 Dose: 1 mg Documented By: MES Imaging Data Radiologist's Impression: Chest X-Ray 04/07/22 12:40 XR chest 1V portable CLINICAL HISTORY: confusion TECHNIQUE: Single frontal radiograph of the chest was obtained. Comparison: None available at the time of this dictation. FINDINGS: No lines and tubes are seen. The cardiomediastinal silhouette is normal. Reticular interstitial opacities are seen. No evidence of pleural effusion or pneumothorax. IMPRESSION: No acute chest disease. ACT 112: Negative or not required by law. Electronically signed by: Ky Motta M.D. 04/07/2022 1:[address] 04/07/22 14:15 CT SCAN OF THE BRAIN WITHOUT IV CONTRAST CLINICAL HISTORY: Change in mental status. COMPARISON STUDY: CT of the brain dated 05/11/2020. TECHNIQUE: Unenhanced axial CT scan of the brain is performed from the vertex to the skull base. A dose lowering technique was utilized adhering to the principles of ALARA. The examination is degraded by motion artifact. The patient was scanned twice in an effort to improve image quality. CT DOSE: 844.62 mGy.cm FINDINGS: Brain parenchyma: There is age-related involutional change noting mild subcortical and periventricular microangiopathic disease. There is no hemorrhage, mass effect, or evidence of acute territorial ischemia by CT criteria. Prabhakar-white matter differentiation is preserved. No extra-axial fluid collection is seen. Ventricles, sulci, cisterns: Prominent secondary to involutional change. Intracranial vasculature: There is atherosclerotic calcification of the cavernous carotid and vertebral arteries. Calvarium: Unremarkable. Sinuses and mastoids: The paranasal sinuses are clear. The mastoid air cells are well pneumatized. Orbits: The bony orbits are grossly intact. There are bilateral ocular lens implants. IMPRESSION: There is no hemorrhage, mass effect, or evidence of acute territorial ischemia by CT criteria noting a motion degraded examination. ACT 112: Negative or not required by law. Electronically signed by: Sharath Torres M.D. 04/07/2022 3:06 PM Discharge Plan Visit Data Chief Complaint: Altered Mental Status Stated Complaint: FALL ED Provider: John Jones Discharge Problem: Coarse tremors, Parkinsons disease, Hypoxia, Hallucinations Patient Disposition: Admitted As Inpatient Discharge Instructions Interventions: ED Discharge Assessment Last Done: 04/07/22 17:28
[2022-04-07] MEDS ORDERED: LORazepam 2 MG/1 ML VIAL IV STA ×3 (14:16→15:27)
--- NOTE | 2022-04-07 15:08 | CT Scan Report ---
CT SCAN OF THE BRAIN WITHOUT IV CONTRAST CLINICAL HISTORY: Change in mental status. COMPARISON STUDY: CT of the brain dated 05/11/2020. TECHNIQUE: Unenhanced axial CT scan of the brain is performed from the vertex to the skull base. A do se lowering technique was utilized adhering to the principles of ALARA. The examination is degraded b y motion artifact. The patient was scanned twice in an effort to improve image quality. CT DOSE: 844.62 mGy.cm FINDINGS: Brain parenchyma: There is age-related involutional change noting mild subcortical and periventricula r microangiopathic disease. There is no hemorrhage, mass effect, or evidence of acute territorial isc hemia by CT criteria. Prabhakar-white matter differentiation is preserved. No extra-axial fluid collection is seen. Ventricles, sulci, cisterns: Prominent secondary to involutional change. Intracranial vasculature: There is atherosclerotic calcification of the cavernous carotid and vertebr al arteries. Calvarium: Unremarkable. Sinuses and mastoids: The paranasal sinuses are clear. The mastoid air cells are well pneumatized. Orbits: The bony orbits are grossly intact. There are bilateral ocular lens implants. IMPRESSION: There is no hemorrhage, mass effect, or evidence of acute territorial ischemia by CT jerrodt [place] noting a motion degraded examination. ACT 112: Negative or not required by law. Electronically signed by: Sharath Torres M.D. 04/07/2022 3:06 PM
[2022-04-07] MEDS ORDERED: CARBIDOPA/LEVODOPA 25/100MG TAB PO ONE (15:27)
--- NOTE | 2022-04-07 16:15 | History & Physical Report ---
Date of Service April 07, 2022 Assessment & Plan (1) Delirium: Plan: Patient on hospice care but requested admission as symptoms unable to be controlled at home Agitated delirium which appeared to get worse/more frequent per his daughter at bedside after Ativan given in the ER - will stop further doses of this Choreiform movements not consistent with seizure-like or Parkinsonian activity History fits with psychomotor agitation starting after Ativan given last night, possibly in the setting of UTI as below. (2) UTI (urinary tract infection): Plan: Possible diagnosis given generalized decline from Tuesday -> Tuesday without alternative explanation and similar scenario in October which resolved with outpatient treatment with cefdinir. Nitrites in straight cath sample (note urine culture is actually straight cath but labelled incorrectly as confirmed with RN who took sample. (3) Hypoxia: Plan: Baseline on O2 on exertion only. 0 LPM @ rest. Aim O2 sats > 90% Suspect current hypoxia related to delirium and decreased respiratory effort and will improve as lorazepam is eliminated. Consider further imaging if not improving - unable to perform on admission due to current agitation and inability to lie still (4) Dementia: (5) Hypothyroidism: Plan: TSH WNL Continue levothyroxine when able to take p.o. meds (6) Diabetes mellitus, type 2: Plan: HbA1C 5.9 in Feb 2021, repeat with AM labs Hold metformin Unlikely to need insulin during inpatient stay especially while NPO - will avoid further delirium but not doing BSG checks. (7) Parkinsons disease: Plan: Restart Sinemet once able to take PO meds Plan VTE Prophylaxis - deferred given hospice Diet - NPO due to current delirium he is not safe to eat Disposition - admit to med/surg Admission and Anticipated Discharge Date Admission Date: Apr 07, 2022 History of Present Illness Chief Complaint: Altered mental state Primary Care Provider: Sharath Wang MD Sherif Mai is an 86 year old male on hospice care with Parkinson's disease who presents to the ER with altered mental status. Unable to get any history from the patient due to altered mental status. History obtained from daughter at bedside. Last known at his baseline on Tuesday during the daytime. Reportedly having slowly progressively worsening sleep over many months treated with Benadryl as needed usually once or twice a week. He took Benadryl on Tuesday, Tuesday and Tuesday night. During this time he was becoming progressively more tired during the day time and his family were concerned he wasn't sleeping well enough during the night. Therefore last night he was given Ativan. Today he was much more confused and having jerking movements of all four extremities. He intermittently has periods where he is too tired to walk and has difficulty moving his feet which his family has seen a correlation to when he doesn't sleep well. He also had a similar episode in October and was treated for a UTI with cefdinir and he recovered well from this. Allergies Allergy/AdvReac Type Severity Reaction Status Date / Time No Known Drug Allergies Allergy Verified 04/07/22 16:39 Home Medications Medication Instructions Recorded Confirmed Type Wheeled Walker #1 ea 09/11/20 03/15/22 Rx tamsulosin 0.4 mg capsule 0.4 mg PO PM #90 caps 01/04/22 04/07/22 Rx levothyroxine 50 mcg tablet 50 mcg PO QAM #90 tabs 02/22/22 04/07/22 Rx metformin 500 mg tablet 500 mg PO QAM #90 tabs 02/24/22 04/07/22 Rx carbidopa 25 mg-levodopa 100 mg 1 tab PO QID #120 tabs 03/03/22 04/07/22 Rx tablet Portable Oxygen #4 ea 03/15/22 03/15/22 Rx Past Med/Surg History Medical History (Updated 04/07/22 @ 18:19 by John Jones M.D.) Benign essential hypertension BPH (benign prostatic hyperplasia) Cognitive changes Confusion Controlled diabetes mellitus with diabetic neuropathy NIDDM Dementia Diabetes mellitus, type 2 Diabetic peripheral neuropathy Former smoker History of anesthesia reaction PT VERY CONFUSED FOR SEVERAL DAYS AFTER KNEE REPLACEMENT > DOES HAVE UNDERLYING MILD CONFUSION PER DAUGHTER Hypercholesterolemia Hyperlipidemia Hypothyroidism Hypothyroidism Hypothyroidism Hypoxia Lung infiltrate Nasal airway abnormality Parkinson disease Parkinsons disease Primary osteoarthritis of knee Pulmonary infiltrate UIP (usual interstitial pneumonitis) Vitamin B 12 deficiency Surgical History History of cataract surgery BILAT History of cholecystectomy History of colonoscopy History of tooth extraction Status post right knee replacement Family History Brother Colon cancer Other No pertinent family history Social History Smoking Status: Former smoker Second Hand Exposure: No; Hx Alcohol Use: Yes Alcohol type: hard liquor Hx Substance Use: No Preferred Language: Romanian Communication Ability: Effective Visual Impairment: No Limitations Hearing Ability: Normal Spine Specialist Required: No Beliefs That Will Affect Care: None marital status: / Current Living Situation: Family current occupational status: retired 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 [employer] Dental Care, Regularly: Yes Seatbelt Use: always Sunscreen Use: No Assistive Devices: None Review of Systems Review of Systems: Unobtainable due to cognitive status Physical Exam Constitutional: + acute distress (intermittent frequent choreiform movements of all 4 extremities); + not well nourished Eyes: Unable to reassess PERRL Respiratory: + respiratory distress, + labored breathing and + uses accessory muscles; expiratory phase not prolonged Auscultation: + rhonchi (b/l) Cardiovascular: Rate/Rhythm: regular rate and regular rhythm Heart Sounds: no murmur Extremities: normal capillary refill; no pedal edema Gastrointestinal (Abdomen): Percussion/Palpation: abdomen soft; abdomen not rigid Skin: no rashes, warm and dry Neurologic: moves all extremities, awake (agitated) and + confused Choreiform movements of all four limbs Psychiatric: Orientation: + not alert and + not oriented x 3 Results & Data Results & Data ([facility]) Vital Signs (Past 12 Hours) Vital Signs Temp Pulse Pulse Resp BP BP Pulse Ox 04/07/22 15:58 93 H 20 115/88 93 04/07/22 15:45 89 24 115/88 78 L 04/07/22 13:11 98 H 04/07/22 12:43 94 04/07/22 12:41 04/07/22 12:41 37.1 C 87 143/88 H 94 04/07/22 12:28 93 H 19 143/88 H 93 O2 Del Method O2 Flow Rate 04/07/22 15:58 Oxymask 5 04/07/22 15:45 Nasal Cannula 2 04/07/22 13:11 04/07/22 12:43 Nasal Cannula 2 04/07/22 12:41 Nasal Cannula 2 04/07/22 12:41 Nasal Cannula 2 04/07/22 12:28 Nasal Cannula 2 Laboratory Results Abnormal lab results 04/07/22 04/07/22 04/07/22 Range/Units 12:24 12:24 13:07 Neut # (Auto) 8.22 H (1.40-6.50) K/uL Lymph # (Auto) 0.63 L (1.2-3.4) K/uL [place] # (Auto) 0.98 H (0.11-0.59) K/uL Glucose 136 H (70-99(Fasting)) mg/dl Total Bilirubin 1.5 H (0.2-1.0) mg/dl AST 12 L (13-39) U/L ALT 5 L (7-52) U/L Urine Protein Trace H (Negative) Urine Ketones 1+ H (Negative) Urine Nitrite Positive A (Negative) Urine Bilirubin 1+ H (Negative) Urine RBC (Auto) 5-10 H (0-4) /hpf U Epithel Cells (Auto) 10-20 H (0-5) /lpf Diagnostic Findings CT SCAN OF THE BRAIN WITHOUT IV CONTRAST CLINICAL HISTORY: Change in mental status. COMPARISON STUDY: CT of the brain dated 05/11/2020. TECHNIQUE: Unenhanced axial CT scan of the brain is performed from the vertex to the skull base. A dose lowering technique was utilized adhering to the principles of ALARA. The examination is degraded by motion artifact. The patient was scanned twice in an effort to improve image quality. CT DOSE: 844.62 mGy.cm FINDINGS: Brain parenchyma: There is age-related involutional change noting mild subcortical and periventricular microangiopathic disease. There is no hemorrhage, mass effect, or evidence of acute territorial ischemia by CT criteria. Prabhakar-white matter differentiation is preserved. No extra-axial fluid collection is seen. Ventricles, sulci, cisterns: Prominent secondary to involutional change. Intracranial vasculature: There is atherosclerotic calcification of the cavernous carotid and vertebral arteries. Calvarium: Unremarkable. Sinuses and mastoids: The paranasal sinuses are clear. The mastoid air cells are well pneumatized. Orbits: The bony orbits are grossly intact. There are bilateral ocular lens implants. IMPRESSION: There is no hemorrhage, mass effect, or evidence of acute territ orial ischemia by CT criteria noting a motion degraded examination. XR chest 1V portable CLINICAL HISTORY: confusion TECHNIQUE: Single frontal radiograph of the chest was obtained. Comparison: None available at the time of this dictation. FINDINGS: No lines and tubes are seen. The cardiomediastinal silhouette is normal. Reticular interstitial opacities are seen. No evidence of pleural effusion or pneumothorax. IMPRESSION: No acute chest disease. Medications Administered ER medications given: Normal saline 1 L bolus Lorazepam 1 mg IV x3 ECG Indication: altered mental status Rate (beats per minute): 88 Rhythm: normal sinus Findings: no acute ischemic change Comparison ECG Date: from (May 11, 2020) Change: no significant change Code Status & VTE Plan Code Status DNR/DNI VTE Prophylaxis Plan VTE Prophylaxis will be ordered: Yes PG Care Time/CCT Total # of Minutes Spent Total Time Spent with Patient: Total time spent is greater than 50% in coordination of care (as documented) at patient's floor/unit and/or counseling patient: Coding Level of Care Code 75055 INT INP/OBS CARE 3/75MIN Diagnoses Delirium R41.0 UTI (urinary tract infection) N39.0 Hypoxia R09.02 Dementia F03.90 Hypothyroidism E03.9 Diabetes mellitus, type 2 E11.9 Parkinsons disease G20
[2022-04-07 16:42] LABS: HCO3 ABG 27 mmol/L (19-24); Oxygen Saturation ABG 96.4 % (90-95); PCO2 ABG 39 mmHg (35-46); PO2 ABG 74 mmHg (80-95); pH ABG 7.45 (7.35-7.45)
[2022-04-07 16:43] LABS: Allen Test Pos (Pos)
[2022-04-07] MEDS ORDERED: cefTRIAXone SODIUM 2,000 MG/70 ML BAG IV STA (17:03)
[2022-04-07] MEDS ORDERED: ACETAMINOPHEN 1,000 MG/100 ML VIAL IV PRN (18:12)
--- NOTE | 2022-04-07 18:17 | Electrocardiogram Report ---
Test Reason : Blood Pressure : / mmHG Vent. Rate : 088 BPM Atrial Rate : 088 BPM P-R Int : 164 ms QRS Dur : 084 ms QT Int : 358 ms P-R-T Axes : 025 019 009 degrees QTc Int : 433 ms Poor data quality, interpretation may be adversely affected Normal sinus rhythm Nonspecific T wave abnormality Abnormal ECG When compared with ECG of 11-MAY-2020 10:59, No significant change was found Confirmed by Jeancarlos Lemon ([id number]) on 04/07/2022 6:16:49 PM Referred By: Confirmed By:Demarcus Lemon
[2022-04-07] MEDS: LACTATED RINGER'S 1,000 ML IV SCH (18:43)
[2022-04-08] MEDS: LACTATED RINGER'S 1,000 ML IV SCH ×2 (05:15→18:01)
[2022-04-08 08:27] LABS: Basophils # (auto) 0.06 K/uL (0-0.2); Basophils % (auto) 0.8 %; Eosinophils # (auto) 0.35 K/uL (0-0.50); Eosinophils % (auto) 4.4 %; Hemoglobin 12.8 g/dl (14.0-18.0); Immature Granulocytes # (auto) 0.02 K/uL (0.01-0.20); Immature Granulocytes % (auto) 0.3 %; Lymphocytes % (auto) 8.9 %; Mean Corpuscular Hgb Conc 32.8 g/dL (32.0-36.0); Mean Corpuscular Volume 91.3 fL (80.0-100.0); Mean Platelet Volume 9.5 fL (9.4-12.4); Monocytes # (auto) 0.79 K/uL (0.11-0.59); Neutrophils # (auto) 5.95 K/uL (1.40-6.50); Neutrophils % (auto) 75.6 %; Platelet Count 153 K/uL (130-400); RDW Coefficient of Variation 13.4 % (11.5-14.5); RDW Standard Deviation 45.1 fL (36.4-46.3); Red Blood Count 4.27 M/uL (4.70-6.10); White Blood Count 7.87 K/ul (4.8-10.8)
[2022-04-08 08:58] LABS: Albumin Globulin Ratio 1.4 (0.9-2); Albumin Level 3.5 gm/dl (3.4-5.0); Bilirubin,Total 1.2 mg/dl (0.2-1.0); Calcium 8.9 mg/dl (8.5-10.1); Creatinine Clr Calc Pharmacy 76.2 ml/min; Est GFR (African American) 95.6 ml/min; Est GFR (Non-African American) 82.5 ml/min; Globulin 2.5 gm/dl (2.5-4.0); Potassium 3.8 mmol/L (3.5-5.1)
[2022-04-08] MEDS: LEVOTHYROXINE SODIUM 50 MCG TABLET PO SCH (08:59)
[2022-04-08] MEDS: CARBIDOPA/LEVODOPA 25/100MG TAB PO SCH ×4 (08:59→22:54)
[2022-04-08] MEDS: ENOXAPARIN INJ 40 MG/0.4 ML SYR SQ SCH (09:00)
--- NOTE | 2022-04-08 09:19 | Hospitalist Progress Note ---
Date of Service April 08, 2022 Assessment & Plan (1) Delirium: Plan: Patient on hospice care but requested admission as symptoms unable to be controlled at home Agitated delirium which appeared to get worse/more frequent per his daughter after Ativan given in the ER - will stop further doses of this Choreiform movements not consistent with seizure-like or Parkinsonian activity History fits with psychomotor agitation starting after Ativan given last night, possibly in the setting of UTI as below. Rx Haldol solution 1mg q 4H as needed for agitation. May eventually need SNF Will discuss further with patient's family Spoke with patient's dtr Mariela who stated patient lives with her other sister and has hospice 2 x per week and aides 3 x per week and also caregivers around the clock. She states though that patient had been fairly functioning prior to this acute change. (2) UTI (urinary tract infection): Plan: Possible diagnosis given generalized decline from Tuesday -> Tuesday without alternative explanation and similar scenario in October which resolved with outpatient treatment with cefdinir. Nitrites in straight cath sample (note urine culture is actually straight cath but labelled incorrectly as confirmed with RN who took sample.) Urine and blood cultures are pending Currently on Ceftriaxone 2gm IV daily Urine micro with pin point growth present, reincubating (3) Hypoxia: Plan: Baseline on O2 on exertion only. Currently on 2L/Min and saturating at 97% Aim O2 sats > 90% Suspect current hypoxia related to delirium and decreased respiratory effort and will improve as lorazepam is eliminated. Consider further imaging if not improving - unable to perform on admission due to current agitation and inability to lie still (4) Dementia: Plan: As above To consider possibly Seroquel when patient has improved and taking po medications (5) Hypothyroidism: Plan: TSH WNL Continue levothyroxine when able to take p.o. meds (6) Diabetes mellitus, type 2: Plan: HbA1C 5.9 in Feb 2021, repeat in the AM Hold metformin Unlikely to need insulin during inpatient stay especially while NPO - will avoid further delirium but not doing BSG checks. (7) Parkinsons disease: Plan: Restart Sinemet once able to take PO meds Plan VTE Prophylaxis - deferred given hospice Diet - NPO due to current delirium he is not safe to eat Disposition - admit to med/surg Admission and Anticipated Discharge Date Admission Date: April 07, 2022 Subjective Patient is sleeping but awake. He is confused and not oriented. He is unable to tell me his name and states he is home and in his bed. Per nursing he was pulling at his IV sites and condom cath. Apparently he had Ativan yesterday and made his delirium worse. Patient currently is with [facility] in [place]. Review of Systems Review of Systems: Unable to complete an accurate ROS due to patient's mental status Physical Exam Constitutional: WD/WN, vitals as above Neck: trachea midline, no thyromegaly Respiratory: no labored breathing and no cough decreased breath sounds Cardiovascular: RRR, no murmur, no edema Gastrointestinal (Abdomen): normal bowel sounds, soft, nontender, no hepatospl enomegaly Skin: no rashes, warm and dry Psychiatric: Patient was sleeping and did awake but not oriented. Unable to state his name and thought he was in his bed at home Results & Data Results & Data ([facility]) Vital Signs (Past 12 Hours) Vital Signs Temp Pulse Resp BP Pulse Ox O2 Del Method O2 Flow Rate 04/08/22 08:11 36.8 C 76 16 138/73 98 Oxymask 4 04/08/22 00:00 79 20 147/76 H 97 Oxymask 4 04/07/22 22:17 37.1 C 79 21 161/54 H 98 Oxymask 4 Laboratory Results Abnormal lab results 04/07/22 04/07/22 04/07/22 Range/Units 12:24 12:24 13:07 RBC (4.70-6.10) M/uL Hgb (14.0-18.0) g/dl Hct (42.0-52.0) % Neut # (Auto) 8.22 H (1.40-6.50) K/uL Lymph # (Auto) 0.63 L (1.2-3.4) K/uL [place] # (Auto) 0.98 H (0.11-0.59) K/uL ABG pO2 (80-95) mmHg ABG HCO3 (19-24) mmol/L ABG O2 Saturation (90-95) % ABG Base Excess (-9-1.8) mEq/L Chloride (98-107) mmol/L Glucose 136 H (70-99(Fasting)) mg/dl Total Bilirubin 1.5 H (0.2-1.0) mg/dl AST 12 L (13-39) U/L ALT 5 L (7-52) U/L Urine Protein Trace H (Negative) Urine Ketones 1+ H (Negative) Urine Nitrite Positive A (Negative) Urine Bilirubin 1+ H (Negative) Urine RBC (Auto) 5-10 H (0-4) /hpf U Epithel Cells (Auto) 10-20 H (0-5) /lpf 04/07/22 04/08/22 04/08/22 Range/Units 16:32 07:51 07:51 RBC 4.27 L (4.70-6.10) M/uL Hgb 12.8 L (14.0-18.0) g/dl Hct 39.0 L (42.0-52.0) % Neut # (Auto) (1.40-6.50) K/uL Lymph # (Auto) 0.70 L (1.2-3.4) K/uL [place] # (Auto) 0.79 H (0.11-0.59) K/uL ABG pO2 74 L (80-95) mmHg ABG HCO3 27 H (19-24) mmol/L ABG O2 Saturation 96.4 H (90-95) % ABG Base Excess 3.0 H (-9-1.8) mEq/L Chloride 109 H (98-107) mmol/L Glucose (70-99(Fasting)) mg/dl Total Bilirubin 1.2 H (0.2-1.0) mg/dl AST 12 L (13-39) U/L ALT 5 L (7-52) U/L Urine Protein (Negative) Urine Ketones (Negative) Urine Nitrite (Negative) Urine Bilirubin (Negative) Urine RBC (Auto) (0-4) /hpf U Epithel Cells (Auto) (0-5) /lpf Diagnostic Findings Chest X-Ray 04/07/22 12:40 XR chest 1V portable CLINICAL HISTORY: confusion TECHNIQUE: Single frontal radiograph of the chest was obtained. Comparison: None available at the time of this dictation. FINDINGS: No lines and tubes are seen. The cardiomediastinal silhouette is normal. Reticular interstitial opacities are seen. No evidence of pleural effusion or pneumothorax. IMPRESSION: No acute chest disease. ACT 112: Negative or not required by law. Electronically signed by: Ky Motta M.D. 04/07/2022 1:[address] 04/07/22 14:15 CT SCAN OF THE BRAIN WITHOUT IV CONTRAST CLINICAL HISTORY: Change in mental status. COMPARISON STUDY: CT of the brain dated 05/11/2020. TECHNIQUE: Unenhanced axial CT scan of the brain is performed from the vertex to the skull base. A dose lowering technique was utilized adhering to the principles of ALARA. The examination is degraded by motion artifact. The patient was scanned twice in an effort to improve image quality. CT DOSE: 844.62 mGy.cm FINDINGS: Brain parenchyma: There is age-related involutional change noting mild subcortical and periventricular microangiopathic disease. There is no hemorrhage, mass effect, or evidence of acute territorial ischemia by CT criteria. Prabhakar-white matter differentiation is preserved. No extra-axial fluid collection is seen. Ventricles, sulci, cisterns: Prominent secondary to involutional change. Intracranial vasculature: There is atherosclerotic calcification of the cavernous carotid and vertebral arteries. Calvarium: Unremarkable. Sinuses and mastoids: The paranasal sinuses are clear. The mastoid air cells are well pneumatized. Orbits: The bony orbits are grossly intact. There are bilateral ocular lens implants. IMPRESSION: There is no hemorrhage, mass effect, or evidence of acute territorial ischemia by CT criteria noting a motion degraded examination. ACT 112: Negative or not required by law. Electronically signed by: Sharath Torres M.D. 04/07/2022 3:06 PM PG Care Time/CCT Total # of Minutes Spent Total Time Spent with Patient: Total time spent is greater than 50% in coordination of care (as documented) at patient's floor/unit and/or counseling patient: Coding Level of Care Code 56690 SUB INP/OBS CARE 3/50MIN Diagnoses Delirium R41.0 UTI (urinary tract infection) N39.0 Hypoxia R09.02 Dementia F03.90 Hypothyroidism E03.9 Diabetes mellitus, type 2 E11.9 Parkinsons disease G20
[2022-04-08] MEDS ORDERED: HALOPERIDOL 1 MG/0.5 ML UDP PO PRN (13:05)
[2022-04-08] MEDS: cefTRIAXone SODIUM 2,000 MG in DEXTROSE 5% 50 ML IV SCH (16:38)
[2022-04-08] MEDS: TAMSULOSIN HCL 0.4 MG CAP PO SCH (22:54)
[2022-04-09] MEDS: HALOPERIDOL 2 MG/1 ML UDP PO PRN ×2 (02:41→09:05)
[2022-04-09] MEDS: LACTATED RINGER'S 1,000 ML IV SCH ×2 (06:07→18:27)
[2022-04-09 07:27] LABS: Hematocrit (blood only) 39.5 % (42.0-52.0); Hemoglobin 13.1 g/dl (14.0-18.0); Mean Corpuscular Hemoglobin 30.1 pg (25.0-34.0); Mean Corpuscular Hgb Conc 33.2 g/dL (32.0-36.0); Mean Corpuscular Volume 90.8 fL (80.0-100.0); Mean Platelet Volume 9.5 fL (9.4-12.4); Platelet Count 163 K/uL (130-400); RDW Coefficient of Variation 12.9 % (11.5-14.5); Red Blood Count 4.35 M/uL (4.70-6.10); White Blood Count 8.92 K/ul (4.8-10.8)
[2022-04-09 07:37] LABS: BUN Creatinine Ratio 24.6 (10-20); Calcium 8.9 mg/dl (8.5-10.1); Creatinine Clr Calc Pharmacy 82.8 ml/min; Est GFR (African American) 98.9 ml/min; Est GFR (Non-African American) 85.4 ml/min; Potassium 3.6 mmol/L (3.5-5.1)
[2022-04-09] MEDS: ENOXAPARIN INJ 40 MG/0.4 ML SYR SQ SCH (09:02)
[2022-04-09] MEDS: CARBIDOPA/LEVODOPA 25/100MG TAB PO SCH ×4 (09:03→21:16)
[2022-04-09] MEDS: LEVOTHYROXINE SODIUM 50 MCG TABLET PO SCH (09:03)
[2022-04-09 09:07] LABS: A calco-baum cmplx NotReported Not Detected (NotDetected); Bact fragilis Not Reported Not Detected (NotDetected); C auris Not Reported Not Detected (NotDetected); Calbicans Not Reported Not Detected (NotDetected); Candida glabrata Not Reported Not Detected (NotDetected); Candida krusei Not Reported Not Detected (NotDetected); Cneoformans/gatti Not Reported Not Detected (NotDetected); Cparapsilosis Not Reported Not Detected (NotDetected); Ctropicalis Not Reported Not Detected (NotDetected); E cloacae compx Not Reported Not Detected (NotDetected); Efaecalis Not Reported Not Detected (NotDetected); Efaecium Not Reported Not Detected (NotDetected); Enterobacterales Not Reported Not Detected (NotDetected); Escherichia coli Not Reported Not Detected (NotDetected); H influenzae Not Reported Not Detected (NotDetected); K aerogenes Not Reported Not Detected (NotDetected); Koxytoca Not Reported Not Detected (NotDetected); Kpneumoniae grp Not Reported Not Detected (NotDetected); Lmonocyt Not Reported Not Detected (NotDetected); N meningitidis Not Reported Not Detected (NotDetected); P aeruginosa Not Reported Not Detected (NotDetected); Proteus spp Not Reported Not Detected (NotDetected); Salmonella spp Not Reported Not Detected (NotDetected); Smarcescens Not Reported Not Detected (NotDetected); Staph lugdunensis Not Reported Not Detected (NotDetected); Staph spp. Not Reported DETECTED (NotDetected); Staphaureus Not Reported Not Detected (NotDetected); Staphepi Not Reported Not Detected (NotDetected); Stenmaltophilia Not Reported Not Detected (NotDetected); Strep agal(GrpB) Not Reported Not Detected (NotDetected); Strep pneum Not Reported Not Detected (NotDetected); Strep pyog (GrpA) Not Reported Not Detected (NotDetected); Strep spp Not Reported Not Detected (NotDetected)
[2022-04-09 09:13] LABS: Estimated Average Glucose 126 mg/dl
[2022-04-09 09:34] LABS: Staphylococcus spp. DETECTED (NotDetected)
--- NOTE | 2022-04-09 10:59 | Hospitalist Progress Note ---
Date of Service April 09, 2022 Assessment & Plan (1) Delirium: Plan: Patient on hospice care but requested admission as symptoms unable to be controlled at home Agitated delirium which appeared to get worse/more frequent per his daughter after Ativan given in the ER - will stop further doses of this Choreiform movements not consistent with seizure-like or Parkinsonian activity History fits with psychomotor agitation starting after Ativan given last night, possibly in the setting of UTI as below. Rx Haldol solution 2mg q 4H as needed for agitation 04/08/22. May eventually need SNF Will discuss further with patient's family Spoke with patient's dtr Mariela who stated patient lives with her other sister and has hospice 2 x per week and aides 3 x per week and also caregivers around the clock. She states though that patient had been fairly functioning prior to this acute change. Today was more alert Will start Seroquel 25mg one at 18:00 tonight (2) UTI (urinary tract infection): Plan: Possible diagnosis given generalized decline from Tuesday -> Tuesday without alternative explanation and similar scenario in October which resolved with outpatient treatment with cefdinir. Nitrites in straight cath sample (note urine culture is actually straight cath but labelled incorrectly as confirmed with RN who took sample.) Urine and blood cultures are pending Currently on Ceftriaxone 2gm IV daily Urine micro final with 3 types of organisms present, all low counts probable skin wood Biofire + gm+ staph and blood cult x 1 with gm + cocci clusters Repeat blood cultures Procal was normal on admission <0.05 (3) Hypoxia: Plan: Baseline on O2 on exertion only. Currently on 2L/Min and saturating at 93% Aim O2 sats > 90% Suspect current hypoxia related to delirium and decreased respiratory effort and will improve as lorazepam is eliminated. Consider further imaging if not improving - unable to perform on admission due to current agitation and inability to lie still CXR on admission no acute disease (4) Dementia: Plan: As above To start Seroquel 25mg at 18:00 tonight (5) Hypothyroidism: Plan: TSH WNL Continue levothyroxine when able to take p.o. meds (6) Diabetes mellitus, type 2: Plan: HbA1C 5.9 in Feb 2021, repeat in the AM Hold metformin Unlikely to need insulin during inpatient stay especially while NPO - will avoid further delirium but not doing BSG checks. Started minced and moist DM diet today (7) Parkinsons disease: Plan: Restart Sinemet once able to take PO meds restarted 04/08/22 Plan VTE Prophylaxis - deferred given hospice Diet - minced moist DM2 Disposition - admit to med/surg Reviewed all culture and labs as well as admission imaging Odered repeat blood cultures today and labs for tomorrow Discussed patient with Dr Quintanilla Admission and Anticipated Discharge Date Admission Date: April 07, 2022 Supervising Physician Co-Signing Physician Notes Code purple was called near change of shift at 18:43. Patient was found to be hypoxic and not actively taking breaths. Patient was saturating below 88% on 10 liters nasal cannula. Patient placed on nonrebreather, O2 sat improved and ordered CT scan with contrast for Pulmonary emboli protocol. IVF held, signed out to overnight resident. Patient will be placed on BIPAP. Patient is a level 5 code status Subjective Patient was awake and much more alert this morning on rounds. His daughter (that he lives with) and his daughter in law were at bedside. He was alert and oriented x 2 today. He was restless last night and had 1:1 due to pulling at his IVs and trying to get out of bed. Blood culture x 1 prelim gm + cocci and + biofire with gm + staph MRSA nasal swab negative. Review of Systems Review of Systems: Patient denies any chest pain, SOB, cough, abdominal pain, nausea, vomiting. All other ROS negative unless stated above. Physical Exam Constitutional: WD/WN, vitals as above Neck: trachea midline, no thyromegaly Respiratory: no labored breathing and no cough Cardiovascular: RRR, no murmur, no edema Gastrointestinal (Abdomen): normal bowel sounds, soft, nontender, no hepatosplenomegaly Skin: no rashes, warm and dry Psychiatric: Orientation: alert, oriented to person, oriented to place and cooperative Results & Data Results & Data ([facility]) Vital Signs (Past 12 Hours) Vital Signs Temp Pulse Resp BP BP Pulse Ox O2 Del Method 04/09/22 07:12 36.8 C 76 18 141/69 H 93 Oxymask 04/08/22 23:14 36.5 C 72 20 142/69 H 94 Nasal Cannula O2 Flow Rate 04/09/22 07:12 4 04/08/22 23:14 4 Laboratory Results Abnormal lab results 04/07/22 04/09/22 04/09/22 Range/Units 12:24 06:59 06:59 RBC 4.35 L (4.70-6.10) M/uL Hgb 13.1 L (14.0-18.0) g/dl Hct 39.5 L (42.0-52.0) % BUN/Creatinine Ratio 24.6 H (10-20) Hemoglobin A1c (4.5-5.6) % Staphylococcus sp PCR DETECTED A (NotDetected) 04/09/22 Range/Units 06:59 RBC (4.70-6.10) M/uL Hgb (14.0-18.0) g/dl Hct (42.0-52.0) % BUN/Creatinine Ratio (10-20) Hemoglobin A1c 6.0 H (4.5-5.6) Staphylococcus sp PCR (NotDetected) Source Blood Procedure/Result Aerobic Blood Culture - Preliminary No growth in Aerobic bottle after 48 hours. Anaerobic Blood Culture - Preliminary Gram positive cocci clusters PG Care Time/CCT Total # of Minutes Spent Total Time Spent with Patient: Total time spent is greater than 50% in coordination of care (as documented) at patient's floor/unit and/or counseling patient: Critical Care Time: Yes Total Critical Care Time: 32 Coding Level of Care Code 53662 SUB INP/OBS CARE 3/50MIN (25 - SIGNIFICANT, SEPARATELY IDENTIFIABLE ) Diagnoses Delirium R41.0 UTI (urinary tract infection) N39.0 Hypoxia R09.02 Dementia F03.90 Hypothyroidism E03.9 Diabetes mellitus, type 2 E11.9 Parkinsons disease G20 Additional Codes Critical Care Time - Critical Care Time: Yes ([id number])
[2022-04-09] MEDS ORDERED: HALOPERIDOL 2 MG/1 ML UDP PO PRN (15:00)
[2022-04-09] MEDS: cefTRIAXone SODIUM 2,000 MG in DEXTROSE 5% 50 ML IV SCH (17:30)
[2022-04-09] MEDS: QUEtiapine FUMARATE 25 MG TABLET PO SCH (17:36)
[2022-04-09] MEDS ORDERED: OPTIRAY 320 500ml IV ONE (19:02)
--- NOTE | 2022-04-09 19:18 | CT Scan Report ---
CHEST CTA for PULMONARY ARTERIES CT DOSE: 923.32 mGy.cm HISTORY: Shortness of breath. TECHNIQUE: Multiaxial CT images of the chest were performed following the intravenous administration of contrast to evaluate the pulmonary arteries. Maximal intensity projection images were also obtaine d. A dose lowering technique was utilized adhering to the principles of ALARA. COMPARISON STUDY: Chest CTA 06/07/2019. FINDINGS: The main pulmonary arteries are patent. Respiratory motion artifact obscures the remaining bilateral pulmonary emboli. Normal caliber thoracic aorta with no evidence for dissection. The heart is top normal in size. There is a small left and trace right pleural effusions. Severe coronary arter y calcifications are noted. There are low lung volumes. Limited views of the upper abdomen demonstrat e normal liver, spleen, adrenal glands. Prior cholecystectomy. Normal caliber esophagus. No definite mediastinal or hilar lymphadenopathy. The no definite acute fractures. No pneumothorax. Narrowing of the central bronchi may be due to the expiratory phase of the study. Bilateral perihilar airspace opa cities and interstitial thickening. This favors moderate to severe pulmonary edema. A multifocal pneu monia could also have a similar appearance. Mild emphysema and chronic interstitial change is again n oted. IMPRESSION: 1. Suboptimal evaluation of the chest due to the significant respiratory motion artifact. 2. The main pulmonary arteries are patent. The remaining pulmonary arteries are obscured by the motio n artifact. 3. Interval development of bilateral perihilar airspace opacities with progressive interstitial thick ening. There is a small left and trace right pleural effusion. Therefore, these findings favor modera te to severe pulmonary edema. A multifocal pneumonia could also have a similar appearance. 4. Emphysema and chronic interstitial changes again noted. ACT 112: Negative or not required by law. Electronically signed by: Newton Stafford M.D. 04/09/2022 7:16 PM
[2022-04-09 19:36] LABS: Base Excess ABG -1.8 mEq/L (-9-1.8); HCO3 ABG 23 mmol/L (19-24); Oxygen Saturation ABG 99.2 % (90-95); PCO2 ABG 39 mmHg (35-46); PO2 ABG > 200 mmHg (80-95); pH ABG 7.38 (7.35-7.45)
[2022-04-09 19:39] LABS: Allen Test Pos (Pos)
[2022-04-09 19:44] LABS: Hematocrit (blood only) 39.4 % (42.0-52.0); Hemoglobin 13.4 g/dl (14.0-18.0); Mean Corpuscular Hemoglobin 30.2 pg (25.0-34.0); Mean Corpuscular Volume 88.7 fL (80.0-100.0); Mean Platelet Volume 9.5 fL (9.4-12.4); Platelet Count 172 K/uL (130-400); RDW Coefficient of Variation 12.9 % (11.5-14.5); RDW Standard Deviation 42.3 fL (36.4-46.3); Red Blood Count 4.44 M/uL (4.70-6.10); White Blood Count 11.99 K/ul (4.8-10.8)
[2022-04-09 19:57] LABS: Anion Gap 11 (3-11); BUN Creatinine Ratio 26.1 (10-20); Blood Urea Nitrogen 18 mg/dl (6-23); C Reactive Protein 10.29 mg/dl (0-0.5); Calcium 8.4 mg/dl (8.5-10.1); Carbon Dioxide 22 mmol/L (21-32); Chloride 105 mmol/L (98-107); Creatinine Clr Calc Pharmacy 82.8 ml/min; Est GFR (African American) 98.9 ml/min; Est GFR (Non-African American) 85.4 ml/min; Glucose 136 mg/dl (70-99(Fasting)); Potassium 3.4 mmol/L (3.5-5.1); Sodium 138 mmol/L (136-145)
[2022-04-09 20:08] LABS: Alanine Aminotransferase < 3 U/L (7-52); Albumin Globulin Ratio 1.4 (0.9-2); Albumin Level 3.4 gm/dl (3.4-5.0); Alkaline Phosphatase 69 U/L (34-104); Aspartate Aminotransferase 13 U/L (13-39); Bilirubin,Total 1.1 mg/dl (0.2-1.0); Globulin 2.5 gm/dl (2.5-4.0); Total Protein 5.9 gm/dl (6.0-8.3)
[2022-04-09 20:12] LABS: D Dimer 1550 ug/L FEU (0-500)
[2022-04-09] MEDS: TAMSULOSIN HCL 0.4 MG CAP PO SCH (21:16)
[2022-04-10] MEDS ORDERED: FUROSEMIDE 40 MG/4 ML VIAL IV ONE (08:08)
[2022-04-10 08:18] LABS: Hematocrit (blood only) 40.8 % (42.0-52.0); Hemoglobin 13.6 g/dl (14.0-18.0); Mean Corpuscular Hgb Conc 33.3 g/dL (32.0-36.0); Mean Corpuscular Volume 89.9 fL (80.0-100.0); Mean Platelet Volume 9.3 fL (9.4-12.4); Platelet Count 169 K/uL (130-400); RDW Coefficient of Variation 13.2 % (11.5-14.5); RDW Standard Deviation 43.4 fL (36.4-46.3); Red Blood Count 4.54 M/uL (4.70-6.10)
[2022-04-10 08:33] LABS: BUN Creatinine Ratio 24.7 (10-20); Creatinine Clr Calc Pharmacy 78.2 ml/min; Est GFR (African American) 96.7 ml/min; Est GFR (Non-African American) 83.4 ml/min; Magnesium 1.9 mg/dl (1.7-2.4); Potassium 3.6 mmol/L (3.5-5.1)
[2022-04-10] MEDS: ENOXAPARIN INJ 40 MG/0.4 ML SYR SQ SCH (08:47)
[2022-04-10] MEDS: QUEtiapine FUMARATE 25 MG TABLET PO SCH (08:50)
[2022-04-10] MEDS: LEVOTHYROXINE SODIUM 50 MCG TABLET PO SCH (08:51)
[2022-04-10] MEDS: CARBIDOPA/LEVODOPA 25/100MG TAB PO SCH ×4 (08:51→19:20)
--- NOTE | 2022-04-10 09:56 | Electrocardiogram Report ---
Test Reason : Blood Pressure : / mmHG Vent. Rate : 104 BPM Atrial Rate : 104 BPM P-R Int : 138 ms QRS Dur : 084 ms QT Int : 312 ms P-R-T Axes : 029 022 -42 degrees QTc Int : 410 ms Poor data quality, interpretation may be adversely affected Sinus tachycardia Abnormal ECG When compared with ECG of 07-APR-2022 12:48, No significant change Confirmed by Rocael Horn ([id number]) on 04/10/2022 9:56:15 AM Referred By: REFERRED SELF Confirmed By:Rocael Horn
--- NOTE | 2022-04-10 10:33 | Hospitalist Progress Note ---
Date of Service April 10, 2022 Assessment & Plan (1) Delirium: Plan: Patient on hospice care but requested admission as symptoms unable to be controlled at home Agitated delirium which appeared to get worse/more frequent per his daughter after Ativan given in the ER - will stop further doses of this Choreiform movements not consistent with seizure-like or Parkinsonian activity History fits with psychomotor agitation starting after Ativan given last night, possibly in the setting of UTI as below. Rx Haldol solution 2mg q 4H as needed for agitation 04/08/22. May eventually need SNF Will discuss further with patient's family Spoke with patient's dtr Mariela who stated patient lives with her other sister and has hospice 2 x per week and aides 3 x per week and also caregivers around the clock. She states though that patient had been fairly functioning prior to this acute change. Spoke today with family member Sydnie Mai via bedside and dtr Mariela via phone. Discussed his condition, labs, code purple last night, Bipap, Oxygen and his laboratory and medications. Placed a consult and sent a message to Dr Becker who is known to patient and family. (family was requesting a consult) Dr Becker was not economic forecaster but placed a consult and spoke over the phone to Dr Thompson who was economic forecaster. Dr Thompson suggested that Seroquel 25 mg at night was a good choice. And it was ok to use the Haldol of needed. Also discussed to continue his regular dose and schedule of the sinemet at this time. Will continue Seroquel 25mg one at 18:00 at night (2) UTI (urinary tract infection): Plan: Possible diagnosis given generalized decline from Tuesday -> Tuesday without alternative explanation and similar scenario in October which resolved with outpatient treatment with cefdinir. Nitrites in straight cath sample (note urine culture is actually straight cath but labelled incorrectly as confirmed with RN who took sample.) Urine and blood cultures are pending Currently on Ceftriaxone 2gm IV daily Urine micro final with 3 types of organisms present, all low counts probable skin wood Biofire + gm+ staph and blood cult x 1 with gm + cocci clusters Repeat blood cultures Procal was normal on admission <0.05 (3) Hypoxia: Plan: Baseline on O2 on exertion only. Currently on 4L/Min and saturating at 97% Aim O2 sats > 90% Suspect current hypoxia related to delirium and decreased respiratory effort and will improve as lorazepam is eliminated. Per neurology may take several days for the lorazepam to be out of his system Consider further imaging if not improving - unable to perform on admission due to current agitation and inability to lie still CXR on admission no acute disease CTA chest last night with code purple 1. Suboptimal evaluation of the chest due to the significant respiratory motion artifact. 2. The main pulmonary arteries are patent. The remaining pulmonary arteries are obscured by the motion artifact. 3. Interval development of bilateral perihilar airspace opacities with progressive interstitial thickening. There is a small left and trace right pleural effusion. Therefore, these findings favor moderate to severe pulmonary edema. A multifocal pneumonia could also have a similar appearance. 4. Emphysema and chronic interstitial changes again noted. Repeat labs in the AM (4) Dementia: Plan: As above To start Seroquel 25mg at 18:00 tonight (5) Hypothyroidism: Plan: TSH WNL Continue levothyroxine when able to take p.o. meds (6) Diabetes mellitus, type 2: Plan: HbA1C 5.9 in Feb 2021, repeat in the AM Hold metformin Unlikely to need insulin during inpatient stay especially while NPO - will avoid further delirium but not doing BSG checks. Continue minced and moist DM diet today (7) Parkinsons disease: Plan: Continue Sinemet at regular dose and time Spoke directly with Dr Becker and also Dr Thompson and cancelled the neurology consult and also made family aware. If patient remains stable family would like to get him back home with hospice Plan VTE Prophylaxis - deferred given hospice Diet - minced moist DM2 Disposition - admit to med/surg Reviewed all culture and labs as well as admission imaging Odered repeat blood cultures today and labs for tomorrow Discussed patient with Dr Quintanilla Admission and Anticipated Discharge Date Admission Date: April 07, 2022 Subjective Patient was awake resting in bed, was on Bipap early this AM secondary to a code purple last evening. His ABG was good, he was pulling over 1000 VT, RR 18-20 and saturating 97-98%. He was taken off the Bipap and changed over to 4L nc and saturating in high 90s. Review of Systems Review of Systems: Patient denies any chest pain, SOB, cough, abdominal pain, nausea, vomiting. All other ROS negative unless stated above. Physical Exam Constitutional: WD/WN, vitals as above Neck: trachea midline, no thyromegaly Respiratory: no labored breathing and no cough Cardiovascular: RRR, no murmur, no edema Gastrointestinal (Abdomen): normal bowel sounds, soft, nontender, no hepatosplenomegaly Skin: mild abrasion top of nares Psychiatric: Orientation: alert, oriented to person, oriented to place and cooperative Results & Data Results & Data ([facility]) Vital Signs (Past 12 Hours) Vital Signs Temp Pulse Pulse Resp BP BP Pulse Ox 04/10/22 07:43 77 20 97 04/10/22 07:14 36.5 C 73 16 152/69 H 98 04/09/22 23:10 80 23 99 04/10/22 03:16 75 21 99 04/10/22 00:42 82 20 117/70 97 O2 Del Method FiO2 04/10/22 07:43 30 04/10/22 07:14 BiPAP 04/09/22 23:10 50 04/10/22 03:16 30 04/10/22 00:42 BiPAP Laboratory Results Abnormal lab results 04/09/22 04/09/22 04/09/22 Range/Units 18:45 19:27 19:27 WBC 11.99 H (4.8-10.8) K/ul RBC 4.44 L (4.70-6.10) M/uL Hgb 13.4 L (14.0-18.0) g/dl Hct 39.4 L (42.0-52.0) % MPV (9.4-12.4) fL D-Dimer 1550 H* (0-500) ug/L FEU ABG pO2 (80-95) mmHg ABG O2 Saturation (90-95) % Potassium (3.5-5.1) mmol/L BUN/Creatinine Ratio (10-20) Glucose (70-99(Fasting)) mg/dl POC Glucose 130 H (70-99) mg/dl Calcium (8.5-10.1) mg/dl Total Bilirubin (0.2-1.0) mg/dl ALT (7-52) U/L C-Reactive Protein (0-0.5) mg/dl Total Protein (6.0-8.3) gm/dl 04/09/22 04/09/22 04/10/22 Range/Units 19:27 19:27 08:00 WBC (4.8-10.8) K/ul RBC (4.70-6.10) M/uL Hgb (14.0-18.0) g/dl Hct (42.0-52.0) % MPV (9.4-12.4) fL D-Dimer (0-500) ug/L FEU ABG pO2 > 200 H (80-95) mmHg ABG O2 Saturation 99.2 H (90-95) % Potassium 3.4 L (3.5-5.1) mmol/L BUN/Creatinine Ratio 26.1 H 24.7 H (10-20) Glucose 136 H 113 H (70-99(Fasting)) mg/dl POC Glucose (70-99) mg/dl Calcium 8.4 L (8.5-10.1) mg/dl Total Bilirubin 1.1 H (0.2-1.0) mg/dl ALT < 3 L (7-52) U/L C-Reactive Protein 10.29 H (0-0.5) mg/dl Total Protein 5.9 L (6.0-8.3) gm/dl 04/10/22 Range/Units 08:00 WBC (4.8-10.8) K/ul RBC 4.54 L (4.70-6.10) M/uL Hgb 13.6 L (14.0-18.0) g/dl Hct 40.8 L (42.0-52.0) % MPV 9.3 L (9.4-12.4) fL D-Dimer (0-500) ug/L FEU ABG pO2 (80-95) mmHg ABG O2 Saturation (90-95) % Potassium (3.5-5.1) mmol/L BUN/Creatinine Ratio (10-20) Glucose (70-99(Fasting)) mg/dl POC Glucose (70-99) mg/dl Calcium (8.5-10.1) mg/dl Total Bilirubin (0.2-1.0) mg/dl ALT (7-52) U/L C-Reactive Protein (0-0.5) mg/dl Total Protein (6.0-8.3) gm/dl Diagnostic Findings Chest CTA 04/09/22 18:52 CHEST CTA for PULMONARY ARTERIES CT DOSE: 923.32 mGy.cm HISTORY: Shortness of breath. TECHNIQUE: Multiaxial CT images of the chest were performed following the intravenous administration of contrast to evaluate the pulmonary arteries. Maximal intensity projection images were also obtained. A dose lowering technique was utilized adhering to the principles of ALARA. COMPARISON STUDY: Chest CTA 06/07/2019. FINDINGS: The main pulmonary arteries are patent. Respiratory motion artifact obscures the remaining bilateral pulmonary emboli. Normal caliber thoracic aorta with no evidence for dissection. The heart is top normal in size. There is a small left and trace right pleural effusions. Severe coronary artery calcifications are noted. There are low lung volumes. Limited views of the upper abdomen demonstrate normal liver, spleen, adrenal glands. Prior cholecystectomy. Normal caliber esophagus. No definite mediastinal or hilar lymphadenopathy. The no definite acute fractures. No pneumothorax. Narrowing of the central bronchi may be due to the expiratory phase of the study. Bilateral perihilar airspace opacities and interstitial thickening. This favors moderate to severe pulmonary edema. A multifocal pneumonia could also have a similar appearance. Mild emphysema and chronic interstitial change is again noted. IMPRESSION: 1. Suboptimal evaluation of the chest due to the significant respiratory motion artifact. 2. The main pulmonary arteries are patent. The remaining pulmonary arteries are obscured by the motion artifact. 3. Interval development of bilateral perihilar airspace opacities with pr ogressive interstitial thickening. There is a small left and trace right pleural effusion. Therefore, these findings favor moderate to severe pulmonary edema. A multifocal pneumonia could also have a similar appearance. 4. Emphysema and chronic interstitial changes again noted. ACT 112: Negative or not required by law. Electronically signed by: Newton Stafford M.D. 04/09/2022 7:16 PM PG Care Time/CCT Total # of Minutes Spent Total Time Spent with Patient: Total time spent is greater than 50% in coordination of care (as documented) at patient's floor/unit and/or counseling patient: Coding Level of Care Code 82793 SUB INP/OBS CARE 3/50MIN Diagnoses Delirium R41.0 UTI (urinary tract infection) N39.0 Hypoxia R09.02 Dementia F03.90 Hypothyroidism E03.9 Diabetes mellitus, type 2 E11.9 Parkinsons disease G20
[2022-04-10] MEDS: cefTRIAXone SODIUM 2,000 MG in DEXTROSE 5% 50 ML IV SCH (16:55)
[2022-04-10] MEDS: TAMSULOSIN HCL 0.4 MG CAP PO SCH (19:20)
[2022-04-11 07:35] LABS: Hematocrit (blood only) 38.9 % (42.0-52.0); Hemoglobin 13.2 g/dl (14.0-18.0); Mean Corpuscular Hemoglobin 30.1 pg (25.0-34.0); Mean Corpuscular Hgb Conc 33.9 g/dL (32.0-36.0); Mean Corpuscular Volume 88.6 fL (80.0-100.0); RDW Coefficient of Variation 12.7 % (11.5-14.5); RDW Standard Deviation 41.9 fL (36.4-46.3); Red Blood Count 4.39 M/uL (4.70-6.10); White Blood Count 8.26 K/ul (4.8-10.8)
[2022-04-11 07:36] LABS: Mean Platelet Volume 9.5 fL (9.4-12.4); Platelet Count 200 K/uL (130-400)
[2022-04-11 08:10] LABS: Anion Gap 7 (3-11); BUN Creatinine Ratio 30.2 (10-20); Blood Urea Nitrogen 19 mg/dl (6-23); C Reactive Protein 12.54 mg/dl (0-0.5); Carbon Dioxide 30 mmol/L (21-32); Chloride 103 mmol/L (98-107); Creatinine Clr Calc Pharmacy 90.7 ml/min; Est GFR (African American) 102.7 ml/min; Est GFR (Non-African American) 88.6 ml/min; Glucose 136 mg/dl (70-99(Fasting)); Potassium 3.3 mmol/L (3.5-5.1); Sodium 140 mmol/L (136-145)
[2022-04-11 08:11] LABS: Alanine Aminotransferase < 3 U/L (7-52); Albumin Globulin Ratio 1.2 (0.9-2); Albumin Level 3.4 gm/dl (3.4-5.0); Alkaline Phosphatase 66 U/L (34-104); Aspartate Aminotransferase 13 U/L (13-39); Bilirubin,Total 0.9 mg/dl (0.2-1.0); Globulin 2.8 gm/dl (2.5-4.0); Total Protein 6.2 gm/dl (6.0-8.3)
[2022-04-11] MEDS ORDERED: POTASSIUM CHLORIDE CRTAB 20 MEQ TABCR PO STA (08:18)
[2022-04-11] MEDS: CARBIDOPA/LEVODOPA 25/100MG TAB PO SCH ×4 (08:41→20:13)
[2022-04-11] MEDS: LEVOTHYROXINE SODIUM 50 MCG TABLET PO SCH (08:41)
[2022-04-11] MEDS: QUEtiapine FUMARATE 25 MG TABLET PO SCH (08:42)
[2022-04-11] MEDS: ENOXAPARIN INJ 40 MG/0.4 ML SYR SQ SCH (08:42)
--- NOTE | 2022-04-11 09:31 | XRay Report ---
XR chest 2V PA/lateral CLINICAL HISTORY: Cough. COMPARISON STUDY: Chest radiograph April 07, [address] April 09, 2022. FINDINGS: No pneumothorax or pleural effusion is identified. Lung volumes are diminished. This is unc hanged. Cardiomegaly is unchanged. Diffuse interstitial thickening and bilateral opacities have sligh tly progressed since prior chest radiograph. These are similar to prior chest CT. IMPRESSION: Interstitial thickening and bilateral opacities. These have increased since chest radiogr aph of April 07, 2022 but are similar to prior chest CT of April 09, 2022. These could reflect pulmonary edema or an infectious process superimposed upon interstitial lung disease. ACT 112: Negative or not required by law. Electronically signed by: Latrell Thorpe M.D. 04/11/2022 9:30 AM
[2022-04-11] MEDS: POLYETHYLENE (MIRALAX) 17 GM PACK PO SCH (10:28)
--- NOTE | 2022-04-11 11:49 | Hospitalist Progress Note ---
Date of Service April 11, 2022 Assessment & Plan (1) Delirium: Plan: Patient on hospice care but requested admission as symptoms unable to be controlled at home Agitated delirium which appeared to get worse/more frequent per his daughter after Ativan given in the ER - will stop further doses of this Choreiform movements not consistent with seizure-like or Parkinsonian activity History fits with psychomotor agitation starting after Ativan given last night, possibly in the setting of UTI as below. Rx Haldol solution 2mg q 4H as needed for agitation 04/08/22. May eventually need SNF Will discuss further with patient's family Spoke with patient's dtr Mariela who stated patient lives with her other sister and has hospice 2 x per week and aides 3 x per week and also caregivers around the clock. She states though that patient had been fairly functioning prior to this acute change. Spoke today with family member Sydnie Mai via bedside and dtr Mariela via phone. Discussed his condition, labs, code purple last night, Bipap, Oxygen and his laboratory and medications. Placed a consult and sent a message to Dr Becker who is known to patient and family. (family was requesting a consult) Dr Becker was not promotions firm accounts manager but placed a consult and spoke over the phone to Dr Thompson who was promotions firm accounts manager. Dr Thompson suggested that Seroquel 25 mg at night was a good choice. And it was ok to use the Haldol of needed. Also discussed to continue his regular dose and schedule of the sinemet at this time. Will continue Seroquel 25mg one at 18:00 at night Will resume the 18:00 dosing of the Seroquel 04/12/22 Haldol is ordered prn (if needed tonight) Spoke today with patient's son and dtr-in-law who were at bedside. Also spoke with patient's daughter Mariela via the phone. PT/OT tried to evaluate patient today but was too lethargic to be able to assess. They voiced concerns that if patient was not able to get to the bathroom they may not be able to take him home. (2) UTI (urinary tract infection): Plan: Possible diagnosis given generalized decline from Tuesday -> Tuesday without alternative explanation and similar scenario in October which resolved with outpatient treatment with cefdinir. Nitrites in straight cath sample (note urine culture is actually straight cath but labelled incorrectly as confirmed with RN who took sample.) Urine and blood cultures are pending Currently on Ceftriaxone 2gm IV daily Urine micro final with 3 types of organisms present, all low counts probable skin wood Biofire + gm+ staph and blood cult x 1 with gm + cocci clusters initially Repeat blood cultures - negative at 24H Procal was normal on admission <0.05 and remains normal CRP was elevated (3) Hypoxia: Plan: Baseline on O2 on exertion only. Currently on 4L/Min and saturating at 98% Aim O2 sats > 90% Suspect current hypoxia related to delirium and decreased respiratory effort and will improve as lorazepam is eliminated. Per neurology may take several days for the lorazepam to be out of his system Consider further imaging if not improving - unable to perform on admission due to current agitation and inability to lie still CXR on admission no acute disease CTA chest last night with code purple 1. Suboptimal evaluation of the chest due to the significant respiratory motion artifact. 2. The main pulmonary arteries are patent. The remaining pulmonary arteries are obscured by the motion artifact. 3. Interval development of bilateral perihilar airspace opacities with progressive interstitial thickening. There is a small left and trace right pleural effusion. Therefore, these findings favor moderate to severe pulmonary edema. A multifocal pneumonia could also have a similar appearance. 4. Emphysema and chronic interstitial changes again noted. Repeat CXR today (4) Dementia: Plan: As above To continue Seroquel 25mg at 18:00 tonight (5) Hypothyroidism: Plan: TSH WNL Continue levothyroxine when able to take p.o. meds (6) Diabetes mellitus, type 2: Plan: HbA1C 5.9 in Feb 2021, repeat in the AM Hold metformin Unlikely to need insulin during inpatient stay especially while NPO - will avoid further delirium but not doing BSG checks. Continue minced and moist DM diet today (7) Parkinsons disease: Plan: Continue Sinemet at regular dose and time Spoke directly with Dr Becker and also Dr Thompson and cancelled the neurology consult and also made family aware. If patient remains stable family would like to get him back home with hospice PT/OT evaluations tomorrow Plan VTE Prophylaxis - deferred given hospice Diet - minced moist DM2 Disposition - admit to med/surg Reviewed all culture and labs as well as admission imaging Ordered repeat blood cultures today and labs for tomorrow Ordered Melatonin 3mg one q hs Discussed patient with Dr Quintanilla Admission and Anticipated Discharge Date Admission Date: April 07, 2022 Subjective Patient was seen this AM and also this afternoon. This afternoon he was resting in bed but did arose to his name. He is alert x 1 and answers questions but not opening his eyes. He denies any complaints. He was given Sinemet this AM along with Seroquel. He also had a dose of miralax. He has had no nausea or vomiting. Review of Systems Review of Systems: Patient denies any chest pain, SOB, cough, abdominal pain, nausea, vomiting. All other ROS negative unless stated above. Physical Exam Constitutional: WD/WN, vitals as above Eyes: closed Neck: trachea midline, no thyromegaly Respiratory: no labored breathing and no cough Cardiovascular: RRR, no murmur, no edema Gastrointestinal (Abdomen): normal bowel sounds, soft, nontender, no hepatosplenomegaly Skin: no rashes, warm and dry Psychiatric: Orientation: alert, oriented to person and cooperative Results & Data Results & Data ([facility]) Vital Signs (Past 12 Hours) Vital Signs Temp Pulse Resp BP BP Pulse Ox O2 Del Method 04/11/22 07:40 Nasal Cannula 04/11/22 07:17 36.4 C L 82 16 155/79 H 98 Nasal Cannula 04/10/22 23:52 84 18 163/92 H 93 Nasal Cannula O2 Flow Rate 04/11/22 07:40 4 04/11/22 07:17 5 04/10/22 23:52 4 Laboratory Results Abnormal lab results 04/11/22 04/11/22 Range/Units 07:08 07:08 RBC 4.39 L (4.70-6.10) M/uL Hgb 13.2 L (14.0-18.0) g/dl Hct 38.9 L (42.0-52.0) % Potassium 3.3 L (3.5-5.1) mmol/L BUN/Creatinine Ratio 30.2 H (10-20) Glucose 136 H (70-99(Fasting)) mg/dl ALT < 3 L (7-52) U/L C-Reactive Protein 12.54 H (0-0.5) mg/dl Diagnostic Findings Chest X-Ray 04/11/22 07:40 XR chest 2V PA/lateral CLINICAL HISTORY: Cough. COMPARISON STUDY: Chest radiograph April 07, [address] April 09, 2022. FINDINGS: No pneumothorax or pleural effusion is identified. Lung volumes are diminished. This is unchanged. Cardiomegaly is unchanged. Diffuse interstitial thickening and bilateral opacities have slightly progressed since prior chest radiograph. These are similar to prior chest CT. IMPRESSION: Interstitial thickening and bilateral opacities. These have increased since chest radiograph of April 07, 2022 but are similar to prior chest CT of April 09, 2022. These could reflect pulmonary edema or an infectious process superimposed upon interstitial lung disease. ACT 112: Negative or not required by law. Electronically signed by: Latrell Thorpe M.D. 04/11/2022 9:30 AM PG Care Time/CCT Total # of Minutes Spent Total Time Spent with Patient: Total time spent is greater than 50% in coordination of care (as documented) at patient's floor/unit and/or counseling patient: Coding Level of Care Code 35455 SUB INP/OBS CARE 2/35MIN Diagnoses Delirium R41.0 UTI (urinary tract infection) N39.0 Hypoxia R09.02 Dementia F03.90 Hypothyroidism E03.9 Diabetes mellitus, type 2 E11.9 Parkinsons disease G20
[2022-04-11] MEDS: cefTRIAXone SODIUM 2,000 MG in DEXTROSE 5% 50 ML IV SCH (17:47)
[2022-04-11] MEDS: MELATONIN 3 MG TAB PO SCH (20:12)
[2022-04-11] MEDS: TAMSULOSIN HCL 0.4 MG CAP PO SCH (20:12)
[2022-04-12 06:50] LABS: Hematocrit (blood only) 42.4 % (42.0-52.0); Hemoglobin 13.8 g/dl (14.0-18.0); Mean Corpuscular Hemoglobin 29.7 pg (25.0-34.0); Mean Corpuscular Hgb Conc 32.5 g/dL (32.0-36.0); Mean Corpuscular Volume 91.4 fL (80.0-100.0); Platelet Count 209 K/uL (130-400); RDW Coefficient of Variation 12.9 % (11.5-14.5); RDW Standard Deviation 43.1 fL (36.4-46.3); Red Blood Count 4.64 M/uL (4.70-6.10)
[2022-04-12 07:03] LABS: BUN Creatinine Ratio 30.1 (10-20); Calcium 9.5 mg/dl (8.5-10.1); Creatinine Clr Calc Pharmacy 78.2 ml/min; Est GFR (African American) 96.7 ml/min; Est GFR (Non-African American) 83.4 ml/min; Potassium 3.5 mmol/L (3.5-5.1)
[2022-04-12] MEDS: CARBIDOPA/LEVODOPA 25/100MG TAB PO SCH ×4 (07:36→19:25)
[2022-04-12] MEDS: LEVOTHYROXINE SODIUM 50 MCG TABLET PO SCH (07:36)
[2022-04-12] MEDS: POLYETHYLENE (MIRALAX) 17 GM PACK PO SCH (07:36)
[2022-04-12] MEDS: ENOXAPARIN INJ 40 MG/0.4 ML SYR SQ SCH (07:36)
--- NOTE | 2022-04-12 09:25 | Hospitalist Progress Note ---
Date of Service April 12, 2022 Assessment & Plan (1) Delirium: Plan: Patient on hospice care but requested admission as symptoms unable to be controlled at home Agitated delirium which appeared to get worse/more frequent per his daughter after Ativan given in the ER - will stop further doses of this Choreiform movements not consistent with seizure-like or Parkinsonian activity History fits with psychomotor agitation starting after Ativan given last night, possibly in the setting of UTI as below. Rx Haldol solution 2mg q 4H as needed for agitation 04/08/22. Spoke with patient's dtr Mariela who stated patient lives with her other sister and has hospice 2 x per week and aides 3 x per week and also caregivers around the clock. She states though that patient had been fairly functioning prior to this acute change. Spoke today with family member Sydnie Mai via bedside and dtr Mariela via phone. Discussed his condition, labs, code purple last night, Bipap, Oxygen and his laboratory and medications. Placed a consult and sent a message to Dr Becker who is known to patient and family. (family was requesting a consult) Dr Becker was not union carpenter but placed a consult and spoke over the phone to Dr Thompson who was union carpenter. Dr Thompson suggested that Seroquel 25 mg at night was a good choice. And it was ok to use the Haldol of needed. Also discussed to continue his regular dose and schedule of the sinemet at this time. Will continue Seroquel 25mg one at 18:00 at night Will resume the 18:00 dosing of the Seroquel 04/12/22 Haldol is ordered prn (if needed tonight) Added Melatonin 3mg at night Spoke today with patient's son who was at bedside and his dtr Mariela (POA) via the phone. Mariela is working to get 24/7 care and if cannot get this in the next 24 hours she is willing for patient to go to [facility] until she gets adequate care at home. MELBA is aware and placing a referral to [facility]. (2) UTI (urinary tract infection): Plan: Possible diagnosis given generalized decline from Tuesday -> Tuesday without alternative explanation and similar scenario in October which resolved with outpatient treatment with cefdinir. Nitrites in straight cath sample (note urine culture is actually straight cath but labelled incorrectly as confirmed with RN who took sample.) Urine and blood cultures x 2 negative Stopped Ceftriaxone (3) Hypoxia: Plan: Baseline on O2 on exertion only. Currently on 4L/Min and saturating at 99% Aim O2 sats > 90% Suspect current hypoxia related to delirium and decreased respiratory effort and will improve as lorazepam is eliminated. Per neurology may take several days for the lorazepam to be out of his system Patient had a code purple this admission and was placed on BIPAP and had CTA revealing pulmonary edema and then diuresed with IV Lasix 60mg. (4) Dementia: Plan: As above To continue Seroquel 25mg at 18:00 tonight Continue regular dose of Sinemet Melatonin 3mg at night (5) Hypothyroidism: Plan: TSH WNL Continue levothyroxine when able to take p.o. meds (6) Diabetes mellitus, type 2: Plan: HbA1C 5.9 in Feb 2021, repeat in the AM Hold metformin Unlikely to need insulin during inpatient stay especially while NPO - will avoid further delirium but not doing BSG checks. Continue minced and moist DM diet (7) Parkinsons disease: Plan: Continue Sinemet at regular dose and time Spoke directly with Dr Becker and also Dr Thompson and cancelled the neurology consult and also made family aware. If patient remains stable family would like to get him back home with hospice Plan VTE Prophylaxis - deferred given hospice Diet - minced moist DM2 Disposition - admit to med/surg Likely to discharge home with hospice in the next 24 hours vs to [facility] for a short stay until home care is set up. Discussed patient with Dr Quintanilla Admission and Anticipated Discharge Date Admission Date: April 07, 2022 Subjective Patient was resting in bed but was able to awaken to his name. He has no complaints today and states he is "good" Son is at bedside and states he had coughing spell last night productive of thick clear mucus. I also spoke with patient's daughter Mariela (LOVE) via the phone and she stated that she is getting all her scheduled help/hospice lined up to get patient home with hospice. I discussed a palliative consult and she was not interested in having a palliative consult at this time. She stated that if she was unable to line up 24/7 care with in the next 24 hours that she would be willing to have him sent to [facility] until she was able to get adequate care at home. MELBA (Tiff) is going to put a referral in for [facility] and speak with Mariela as well. Review of Systems Review of Systems: Patient denies any chest pain, SOB, cough, abdominal pain, nausea, vomiting. All other ROS negative unless stated above. Per nursing he had a good night. had some applesauce this AM with his medications. Physical Exam Constitutional: WD/WN, vitals as above + thin and comfortable; no acute distress and not combative Neck: trachea midline, no thyromegaly Respiratory: no labored breathing and no cough Cardiovascular: RRR, no murmur, no edema Gastrointestinal (Abdomen): normal bowel sounds, soft, nontender, no hepatosplenomegaly Skin: no rashes, warm and dry Psychiatric: Orientation: alert, oriented to person and cooperative Results & Data Results & Data ([facility]) Vital Signs (Past 12 Hours) Vital Signs Temp Pulse Resp BP Pulse Ox O2 Del Method O2 Flow Rate 04/12/22 07:30 Nasal Cannula 4 04/12/22 07:11 36.5 C 74 16 155/87 H 99 Nasal Cannula 4 04/11/22 21:54 Nasal Cannula 4 Laboratory Results Abnormal lab results 04/11/22 04/12/22 04/12/22 Range/Units 20:47 06:23 06:23 RBC 4.64 L (4.70-6.10) M/uL Hgb 13.8 L (14.0-18.0) g/dl MPV 9.0 L (9.4-12.4) fL Carbon Dioxide 34 H (21-32) mmol/L BUN/Creatinine Ratio 30.1 H (10-20) Glucose 138 H (70-99(Fasting)) mg/dl POC Glucose 121 H (70-99) mg/dl PG Care Time/CCT Total # of Minutes Spent Total Time Spent with Patient: Total time spent is greater than 50% in coordination of care (as documented) at patient's floor/unit and/or counseling patient: Coding Level of Care Code 67890 SUB INP/OBS CARE 2/35MIN Diagnoses Delirium R41.0 UTI (urinary tract infection) N39.0 Hypoxia R09.02 Dementia F03.90 Hypothyroidism E03.9 Diabetes mellitus, type 2 E11.9 Parkinsons disease G20
[2022-04-12] MEDS ORDERED: QUEtiapine FUMARATE 25 MG TABLET PO SCH (18:00)
[2022-04-12] MEDS: TAMSULOSIN HCL 0.4 MG CAP PO SCH (19:24)
[2022-04-12] MEDS: MELATONIN 3 MG TAB PO SCH (19:25)
[2022-04-13] MEDS ORDERED: LEVOTHYROXINE SODIUM 50 MCG TABLET PO SCH (06:30)
[2022-04-13 07:38] LABS: Creatinine Clr Calc Pharmacy 82.8 ml/min; Est GFR (African American) 98.9 ml/min; Est GFR (Non-African American) 85.4 ml/min
[2022-04-13] MEDS: CARBIDOPA/LEVODOPA 25/100MG TAB PO SCH ×2 (08:58→13:24)
[2022-04-13] MEDS: ENOXAPARIN INJ 40 MG/0.4 ML SYR SQ SCH (08:59)
[2022-04-13] MEDS: POLYETHYLENE (MIRALAX) 17 GM PACK PO SCH (08:59)
--- NOTE | 2022-04-13 09:31 | Discharge Summary ---
Date of Service April 13, 2022 Admission HPI Per Admitting Provider Sherif Mai is an 86 year old male on hospice care with Parkinson's disease who presents to the ER with altered mental status. Unable to get any history from the patient due to altered mental status. History obtained from daughter at bedside. Last known at his baseline on Tuesday during the daytime. Reportedly having slowly progressively worsening sleep over many months treated with Benadryl as needed usually once or twice a week. He took Benadryl on Tuesday, Tuesday and Tuesday night. During this time he was becoming progressively more tired during the day time and his family were concerned he wasn't sleeping well enough during the night. Therefore last night he was given Ativan. Today he was much more confused and having jerking movements of all four extremities. He intermittently has periods where he is too tired to walk and has difficulty moving his feet which his family has seen a correlation to when he doesn't sleep well. He also had a similar episode in October and was treated for a UTI with cefdinir and he recovered well from this. Admission Exam Per Admitting Provider Constitutional: + acute distress (intermittent frequent choreiform movements of all 4 extremities); + not well nourished Eyes: Unable to reassess PERRL Respiratory: + respiratory distress, + labored breathing and + uses accessory muscles; expiratory phase not prolonged Auscultation: + rhonchi (b/l) Cardiovascular: Rate/Rhythm: regular rate and regular rhythm Heart Sounds: no murmur Extremities: normal capillary refill; no pedal edema Gastrointestinal (Abdomen): Percussion/Palpation: abdomen soft; abdomen not rigid Skin: no rashes, warm and dry Neurologic: moves all extremities, awake (agitated) and + confused Choreiform movements of all four limbs Psychiatric: Orientation: + not alert and + not oriented x 3 Principal Diagnosis Delirium Parkinson's Dementia Hypoxia Discharge Exam Constitutional WD/WN, vitals as above + thin and comfortable; no acute distress and not combative Neck trachea midline, no thyromegaly Respiratory no labored breathing and no cough Cardiovascular RRR, no murmur, no edema Gastrointestinal (Abdomen) normal bowel sounds, soft, nontender, no hepatosplenomegaly Skin no rashes, warm and dry Psychiatric Orientation: alert, oriented to person, oriented to place and cooperative Discharge Data Allergies Allergy/AdvReac Type Severity Reaction Status Date / Time No Known Drug Allergies Allergy Verified 04/07/22 16:39 Consultations 04/07/22 15:51 ED Decision to Admit Stat Ordered Studies 04/07/22 14:15 CT head/brain wo con Stat IMPRESSION: There is no hemorrhage, mass effect, or evidence of acute territorial ischemia by CT criteria noting a motion degraded examination. 04/09/22 18:52 CT for pulmonary embolism PE [CT angio chest PE protocol] Stat 1. Suboptimal evaluation of the chest due to the significant respiratory motion artifact. 2. The main pulmonary arteries are patent. The remaining pulmonary arteries are obscured by the motion artifact. 3. Interval development of bilateral perihilar airspace opacities with progressive interstitial thickening. There is a small left and trace right pleural effusion. Therefore, these findings favor moderate to severe pulmonary edema. A multifocal pneumonia could also have a similar appearance. 4. Emphysema and chronic interstitial changes again noted. CXR FINDINGS: No lines and tubes are seen. The cardiomediastinal silhouette is normal. Reticular interstitial opacities are seen. No evidence of pleural effusion or pneumothorax. Hospital Course (1) Delirium: Patient on hospice care but requested admission as symptoms unable to be controlled at home Agitated delirium which appeared to get worse/more frequent per his daughter after Ativan given in the ER - will stop further doses of this Choreiform movements not consistent with seizure-like or Parkinsonian activity History fits with psychomotor agitation starting after Ativan given last night, possibly in the setting of UTI as below. Rx Haldol solution 2mg q 4H as needed for agitation 04/08/22. Spoke with patient's dtr Mariela who stated patient lives with her other sister and has hospice 2 x per week and aides 3 x per week and also caregivers around the clock. She states though that patient had been fairly functioning prior to this acute change. Spoke today with family member Sydnie Mai via bedside and dtr Mariela via phone. Discussed his condition, labs, code purple last night, Bipap, Oxygen and his laboratory and medications. Placed a consult and sent a message to Dr Becker who is known to patient and family. (family was requesting a consult) Dr Becker was not clay preparation supervisor but placed a consult and spoke over the phone to Dr Thompson who was clay preparation supervisor. Dr Thompson suggested that Seroquel 25 mg at night was a good choice. And it was ok to use the Haldol of needed. Also discussed to continue his regular dose and schedule of the sin emet at this time. Will continue Seroquel 25mg one at 18:00 at night Will resume the 18:00 dosing of the Seroquel 04/12/22 Haldol is ordered prn (if needed tonight) Added Melatonin 3mg at night Spoke today with patient's son who was at bedside and his dtr Mariela (POA) via the phone. Mariela is working to get 06/09 care and if cannot get this in the next 24 hours she is willing for patient to go to [facility] until she gets adequate care at home. CM is aware and placing a referral to [facility]. (2) UTI (urinary tract infection): Possible diagnosis given generalized decline from Tuesday -> Tuesday without alternative explanation and similar scenario in October which resolved with outpatient treatment with cefdinir. Nitrites in straight cath sample (note urine culture is actually straight cath but labelled incorrectly as confirmed with RN who took sample.) Urine and blood cultures x 2 negative Stopped Ceftriaxone (3) Hypoxia: Baseline on O2 on exertion only. Currently on 4L/Min and saturating at 99% Aim O2 sats > 90% Suspect current hypoxia related to delirium and decreased respiratory effort and will improve as lorazepam is eliminated. Per neurology may take several days for the lorazepam to be out of his system Patient had a code purple this admission and was placed on BIPAP and had CTA revealing pulmonary edema and then diuresed with IV Lasix 60mg. (4) Dementia: As above To continue Seroquel 25mg at 18:00 tonight Continue regular dose of Sinemet Melatonin 3mg at night (5) Hypothyroidism: TSH WNL Continue levothyroxine when able to take p.o. meds (6) Diabetes mellitus, type 2: HbA1C 5.9 in Feb 2021, repeat in the AM Hold metformin Unlikely to need insulin during inpatient stay especially while NPO - will avoid further delirium but not doing BSG checks. Continue minced and moist DM diet (7) Parkinsons disease: Continue Sinemet at regular dose and time Spoke directly with Dr Becker and also Dr Thompson and cancelled the neurology consult and also made family aware. If patient remains stable family would like to get him back home with hospice Plan VTE Prophylaxis - deferred given hospice Diet - minced moist DM2 Discharge home with hospice today. Discussed patient with Dr Quintanilla Total Time Total Time Spent Total Time Spent (In Minutes): 35 Discharge Plan Discharge Items Patient Disposition: Hospice - Home Reason For Visit: AGITATED DELIRIUM Discharge Diagnosis: Parkinson's dementia/delirium Hypoxia Condition on Discharge: Fair Activity: Resume your previous activity Non-emergency contact: Primary Care Provider Call non-emergency contact if: you have any medication questions Follow-up/Referrals: Sharath Wang MD [Primary Care Provider] - Diet: Carb Consistent or DM2 Diet Texture: Mechanical soft (ground) Diet Comment: minced and moist diet Addtl Attending Provider Instructions: You were admitted with confusion, agitation and decline from your baseline. You had CT scan of your head and CXR. Initial Urinalysis looked possibly like an infection and you were started on IV antibiotics. The urine culture was negative for infection and also blood cultures x 2 negative. Then had repeat blood cultures and are pending but no growth at 48 hour abbey. Neurology was consulted via messaging and reviewed patient's chart and recommended to continue the Seroquel 25mg at night along with hs regular dose of Sinemet. Also statrted Melatonin 3mg at night . Patient was placed on minced and moist diet. Family was wanting to get patient back home with hospice as soon as possible. Pending Studies at Discharge: Yes Studies:: Final 2 blood cultures Currently NO Growth at 48 hours Stand-Alone Forms: My [facility] Medications and DC Order Prescriptions: New haloperidol lactate 2 mg/mL Concentrate 2 mg PO Q4H MDD 8mg PRN (Reason: agitation) Qty: 15 0RF quetiapine 25 mg Tablet 25 mg PO DAILY@1800 Qty: 30 0RF melatonin 3 mg Tablet 3 mg PO HS Qty: 30 0RF Continued (DME) Wheeled Walker Misc See Rx Instructions .Route Qty: 1 0RF Rx Instructions: With hand brakes and seat, G20 tamsulosin 0.4 mg capsule 0.4 mg PO PM Qty: 90 3RF levothyroxine 50 mcg tablet 50 mcg PO QAM Qty: 90 3RF Rx Instructions: take 30-60 minutes prior to other medication and food. metformin 500 mg tablet 500 mg PO QAM Qty: 90 3RF carbidopa-levodopa 25-100 mg tablet 1 tab PO QID Qty: 120 11RF (DME) Portable Oxygen Misc See Rx Instructions .ROUTE .MEDSUPPLY Qty: 4 11RF Rx Instructions: 2 lit via NC Discharge Orders: Discharge Order (Routine); Ordered 04/13/22 Ordered By: Wanda Gomez/Other Patient Handouts: Managing Type 2 Diabetes, Indwelling Urinary Catheter Dc Admission Data Admit Date/Time: 04/07/22 16:32 Attending Provider: Albert Quintanilla Admit Provider: Michoacano Davenport Primary Care Provider: Sharath Wang Other Providers: Michoacano Davenport ; Alex Hurt Other Interventions: Discharge Summary Assessment (RN) Last Done: 04/13/22 13:14 Supervising Physician Co-Signing Physician Notes Patient seen and examined at bedside During face to face encounter, I obtained a physical exam and history of hospital stay. Patient is a poor historian I discussed discharge plan with KOTA Antoine and patient. I reviewed above note and agree with it. Patient will be discharged back to hospice after being evaluated for delirium. Coding Level of Care Code 92138 INP/OBS DISCH >30 MIN Diagnoses Delirium R41.0 UTI (urinary tract infection) N39.0 Hypoxia R09.02 Dementia F03.90 Hypothyroidism E03.9 Diabetes mellitus, type 2 E11.9 Parkinsons disease G20 Time Spent (min) 35
[2022-04-13] MEDS ORDERED: bisacodyL 10 MG SUPP PR STA (10:57)
== END 2022-04-13 16:26 | disposition hospice, home (50) | DRG 57 ==
LOC: ED 12:12 → SUATTDRO 16:32 → 3W 16:32
DX: Z66 Do not resuscitate; F02.811 Dementia in other diseases classified elsewhere, unspecified severity, with agitation; R09.02 Hypoxemia; G20 Parkinson's disease; Z79.890 Hormone replacement therapy; E03.9 Hypothyroidism, unspecified; E11.9 Type 2 diabetes mellitus without complications; Z87.891 Personal history of nicotine dependence; Z87.440 Personal history of urinary (tract) infections; Z51.5 Encounter for palliative care; Z79.84 Long term (current) use of oral hypoglycemic drugs; N39.0 Urinary tract infection, site not specified; Z79.899 Other long term (current) drug therapy